=== PATIENT | male | born 1955 | race Caucasian/White ===

== ENCOUNTER 2025-02-12 06:53 | Day surgery (SDC) | payer OTHER, SELFPAY ==
[2025-02-12] VITALS (13 sets, daily range): BP systolic 125–175; BP diastolic 79–115; BMI 30.6
[2025-02-12] MEDS: NSS 282 ML IV (08:09)
[2025-02-12] MEDS: LASIX 20 MG IV (11:53)
[2025-02-12] MEDS: TOPROL XL 25 MG PO (11:54)
--- NOTE | 2025-02-12 12:44 | PTCARENOTE ---
Pt's heart rate dropping to 30's. Pt asymptomatic. BP 130's/80-90's. Nicky Good NP made aware and in to evaluate pt. NSS IV bolus ordered. Will administer and continue to monitor.
[2025-02-12] MEDS: NSS 500 IV (12:51)
--- NOTE | 2025-02-12 17:38 | ITS.CL.CATH ---
[facility] - Catheterization
Cardiac Catheterization
Procedure Report:
LEFT HEART CATHETERIZATION
Date of Procedure: February 12, 2025
Referring: Gregory Figueroa.
PROCEDURES:
1. Left heart catheterization, coronary angiogram.
2. Moderate sedation.
INDICATION: Abnormal coronary CT
ACCESS: Right radial artery, 6Fr. sheath, under US guidance.
HEMODYNAMICS : (mmHg)
AO (s/d) : 143/92
LVEDP : 25
No significant gradient across the aortic valve to suggest aortic stenosis.
CORONARY FINDINGS
Dominance: Right
Left Main Trunk (LMT): Large caliber vessel that gives rise to the LAD and LCx branches and there is mild diffuse atherosclerotic plaque.
Left Anterior Descending Artery (LAD): Large caliber vessel that gives off 2 major diagonal branches as it courses along the anterior inter-ventricular groove before wrapping around the cardiac apex. Mid LAD has a 80% stenosis just distal to D2
takeoff. D1 and D2 are small caliber vessels. D2 has moderate to severe diffuse plaque in the proximal to midportion of the vessel.
Left Circumflex Artery (LCx): Large caliber vessel that gives off 2 major obtuse marginal (OM) branches as it courses along the atrio-ventricular (AV) groove. Proximal to mid left circumflex has 70 to 80% stenosis extending into a medium caliber
OM1 which appears to be a good bypass target.
Right Coronary Artery (RCA): Large caliber dominant vessel that gives rise to the posterior descending artery (RPDA) and postero-lateral ventricular (RPLV) branches distally. There is diffuse mild to moderate plaque in the proximal to mid vessel
with 2 serial 70 to 80% stenosis in the distal RCA. Midportion of the RPDA has 70% stenosis.
SEDATION: 27 minutes of procedural sedation was utilized. IV Midazolam and IV Fentanyl were administered. An independent medical manager was present to assist with and help manage the patient's level of consciousness and physiologic status.
RADIATION SUMMARY: Fluoro Time (min): 2.6, Dose (mGy): 464.57, DAP (Gy.cm2) : 32.4
Closure Device: There were no immediate intra-procedural complications. The sheath was pulled in the recyclable materials collector and a vascular-band applied to the right wrist for radial artery hemostasis using the patent hemostasis technique.
CONCLUSIONS
1. Significant multivessel coronary artery disease.
2. Elevated LVEDP at 25 mmHg.
RECOMMENDATIONS
1. Wean radial band per protocol. Monitor right hand perfusion and for bleeding from the radial site following removal of the vascular-band following trans-radial access.
2. Continue aggressive medical therapy and risk factor modification for secondary CAD prevention.
3. Hydrate with normal saline to mitigate the risk of contrast-induced acute kidney injury.
4. Refer for CT surgery consult for discussion for coronary artery bypass grafting.
5. Follow-up with Dr. Adrien Foley.
Copy to: Gregory Figueroa.
Daya Ray MD, [facility], [facility]
== END 2025-02-12 14:20 | disposition home or self-care (01) ==
LOC: CATH 06:53
PROVIDERS: ATTENDING PHYSICIAN Student in an Organized Health Care Education/Training Program; FAMILY PHYSICIAN Internal Medicine; OTHER PHYSICIAN Internal Medicine Cardiovascular Disease
DX: I25.10 Atherosclerotic heart disease of native coronary artery without angina pectoris (principal); R93.1 Abnormal findings on diagnostic imaging of heart and coronary circulation; E78.5 Hyperlipidemia, unspecified; I71.21 Aneurysm of the ascending aorta, without rupture
CPT/HCPCS: 99152; 99153; 93458; C1894; Q9967

== ENCOUNTER 2025-03-19 04:54 | Inpatient (IN) | payer OTHER, SELFPAY ==
[2025-03-06 12:04] VITALS: BMI 30.4
[2025-03-06 12:55] LABS: Hematocrit 40.9 % (39.0-52.0); Hemoglobin 14.0 g/dL (13.0-18.0); Mean Corp Hgb Conc. 34.2 g/dL (33.0-37.0); Mean Corpuscular Volume 90.1 fL (80.0-94.0); Nucleated Red Blood Cells % 0 % (-); Platelet Count 227 10^3/uL (130-400); Red Cell Dist. Width 12.8 % (11.5-14.5)
[2025-03-06 13:05] LABS: INR 0.94; PT 12.9 Sec (11.4-14.6)
[2025-03-06 13:06] LABS: Urine Character Clear (Clear)
[2025-03-06 13:10] LABS: ALT (SGPT) 48 U/L (0-50); AST (SGOT) 30 U/L (17-59); Albumin 4.5 g/dl (3.5-5.0); Alkaline Phosphatase 50 U/L (38-126); Blood Urea Nitrogen 24 mg/dl (9-20); Calcium 9.4 mg/dl (8.4-10.2); Carbon Dioxide 30 mmol/L (22-30); Chloride 106 mmol/L (98-107); Estimated Creatinine Clearance 102 ml/min; Glucose 90 mg/dl (70-99); Potassium 5.2 mmol/L (3.5-5.1); Sodium 142 mmol/L (135-145); Total Protein 6.8 g/dl (6.3-8.2); eGFR > 60.00
--- NOTE | 2025-03-06 13:28 | CM ---
Met with Mr. Carpenter in [facility]. He states prior to admission he resides alone in a three story home with a full flight of steps from the basement. He states he has a full flight of steps to get to bedroom/full bathroom. He states he has a powder room
on the first floor. He states prior to admission he was independent with ambulation and adls. He states he does not have nay dem in the home. He states he has a prescription plan and uses [facility]. He states he is planning on staying with his
brother in [place], [place] for a while before returning home. The discharge plan is to go to his brothers home in [place], [place]. with a home visit by the Transitional Care Nurse when medically stable.
We reviewed pre-op and post-op routines. We reviewed the shower instructions. He has the soap, written instructions and the Cardiothoracic Thoracic Surgery Educational Booklet. We reviewed restrictions including sternal precautions and driving
restrictions. We discussed a home visit by the Transitional Care Nurse. He is agreeable to the home visit. The plan is for AVR and CABG on March 16, 2025.
[2025-03-06 13:32] LABS: Glycohemoglobin (HgbA1c) 5.5 % (4.0-5.6)
[2025-03-19] VITALS (20 sets, daily range): BP systolic 74–150; BP diastolic 56–104; BMI 29.7
[2025-03-19] MEDS: MAGNESIUM OXIDE 400 MG PO (05:22)
[2025-03-19] MEDS: LOPRESSOR 25 MG PO (05:22)
[2025-03-19] MEDS: PROTONIX 40 MG PO (05:22)
[2025-03-19] MEDS: BACTROBAN 2% OINTMENT 1 APPLIC NASAL ×2 (05:23→20:19)
--- NOTE | 2025-03-19 06:00 | PTCARENOTE ---
admitted pt into 2266. pt confirmed NPO since midnight and 2 CHG showers taken at home. labs obtained. pt clipped and washed w/ CHG wipes. Admission questions and med rec completed. Pre-op medications given. awaiting CVOR
[2025-03-19 07:24] LABS: Urine Character Clear (Clear)
[2025-03-19 07:27] LABS: ACT+ - POC 118 Seconds (82-134)
[2025-03-19 07:53] LABS: Urine White Cell 0-2 /HPF (0-5)
[2025-03-19 07:55] LABS: Urine Red Blood Cell 21-25 /HPF (0-2)
[2025-03-19 07:56] LABS: Urine Urothelial Cell >30 /LPF (FEW)
[2025-03-19 09:31] LABS: ACT+ - POC 666 Seconds (82-134)
[2025-03-19 09:46] LABS: B.E. - POC 0.2 mmol/L; Glucose - POC 88 mg/dl (70-99); HCO3 - POC 26 mmol/L (21-28); Hematocrit - POC 35 % PCV (42-52); Hemodilution- POC No; Hemoglobin Calculated - POC 12.0; Ionized Calcium - POC 1.19 mmol/L (1.15-1.33); Lactate - POC 1.04 mmol/L (0.36-0.75); O2 Saturation %Calculated-POC 99.4 % (94-98); PCO2 - POC 44 mmHg (35-48); PO2 - POC 163 mmHg (83-108); Potassium - POC 3.6 mmol/L (3.5-5.1); Sodium - POC 141 mmol/L (136-145); Specimen Type - POC Arterial; pH - POC 7.38 (7.35-7.45)
[2025-03-19 09:55] LABS: ACT+ - POC 565 Seconds (82-134)
[2025-03-19 10:08] LABS: B.E. - POC 6.4 mmol/L; Glucose - POC 134 mg/dl (70-99); HCO3 - POC 32 mmol/L (21-28); Hematocrit - POC 30 % PCV (42-52); Hemodilution- POC Yes; Hemoglobin Calculated - POC 10.3; Ionized Calcium - POC 1.08 mmol/L (1.15-1.33); Lactate - POC 0.85 mmol/L (0.36-0.75); O2 Saturation %Calculated-POC 100.0 % (94-98); PCO2 - POC 50 mmHg (35-48); PO2 - POC 485 mmHg (83-108); POC Comment CPB; Potassium - POC 4.2 mmol/L (3.5-5.1); Sodium - POC 141 mmol/L (136-145); Specimen Type - POC Arterial; pH - POC 7.42 (7.35-7.45)
[2025-03-19 10:19] LABS: ACT+ - POC 523 Seconds (82-134)
[2025-03-19 10:38] LABS: B.E. - POC 3.8 mmol/L; Glucose - POC 112 mg/dl (70-99); HCO3 - POC 28 mmol/L (21-28); Hematocrit - POC 29 % PCV (42-52); Hemodilution- POC Yes; Hemoglobin Calculated - POC 9.8; Ionized Calcium - POC 1.03 mmol/L (1.15-1.33); Lactate - POC 1.50 mmol/L (0.36-0.75); O2 Saturation %Calculated-POC 99.9 % (94-98); PCO2 - POC 41 mmHg (35-48); PO2 - POC 298 mmHg (83-108); POC Comment CPB; Potassium - POC 5.6 mmol/L (3.5-5.1); Sodium - POC 140 mmol/L (136-145); Specimen Type - POC Arterial; pH - POC 7.45 (7.35-7.45)
[2025-03-19 10:47] LABS: ACT+ - POC 517 Seconds (82-134)
[2025-03-19 11:08] LABS: B.E. - POC 2.9 mmol/L; Glucose - POC 140 mg/dl (70-99); HCO3 - POC 27 mmol/L (21-28); Hematocrit - POC 30 % PCV (42-52); Hemodilution- POC Yes; Hemoglobin Calculated - POC 10.1; Ionized Calcium - POC 1.10 mmol/L (1.15-1.33); Lactate - POC 1.75 mmol/L (0.36-0.75); O2 Saturation %Calculated-POC 100.0 % (94-98); PCO2 - POC 39 mmHg (35-48); PO2 - POC 381 mmHg (83-108); POC Comment CPB; Potassium - POC 5.0 mmol/L (3.5-5.1); Sodium - POC 141 mmol/L (136-145); Specimen Type - POC Arterial; pH - POC 7.45 (7.35-7.45)
[2025-03-19 11:17] LABS: ACT+ - POC 561 Seconds (82-134)
[2025-03-19 11:32] LABS: B.E. - POC 3.4 mmol/L; Glucose - POC 140 mg/dl (70-99); HCO3 - POC 28 mmol/L (21-28); Hematocrit - POC 31 % PCV (42-52); Hemodilution- POC Yes; Hemoglobin Calculated - POC 10.5; Ionized Calcium - POC 1.13 mmol/L (1.15-1.33); Lactate - POC 1.77 mmol/L (0.36-0.75); O2 Saturation %Calculated-POC 99.9 % (94-98); PCO2 - POC 43 mmHg (35-48); PO2 - POC 334 mmHg (83-108); POC Comment CPB; Potassium - POC 4.3 mmol/L (3.5-5.1); Sodium - POC 141 mmol/L (136-145); Specimen Type - POC Arterial; pH - POC 7.43 (7.35-7.45)
--- NOTE | 2025-03-19 11:41 | CM ---
Chart reviewed. Patient is in the OR today. Patient is independent of ADLS, lives alone in a 3 STH, 0 DME. Plan is for the patient to go to his brothers house in [place]. CM to cofirm and get brothers address. Plan is for the patient to go
to his brothers house with CT Transitional RN. CM to follow
[2025-03-19 11:42] LABS: ACT+ - POC 527 Seconds (82-134)
[2025-03-19 12:04] LABS: ACT+ - POC 531 Seconds (82-134)
[2025-03-19 12:08] LABS: B.E. - POC -0.1 mmol/L; Glucose - POC 120 mg/dl (70-99); HCO3 - POC 25 mmol/L (21-28); Hematocrit - POC 31 % PCV (42-52); Hemodilution- POC Yes; Hemoglobin Calculated - POC 10.5; Ionized Calcium - POC 1.09 mmol/L (1.15-1.33); Lactate - POC 2.51 mmol/L (0.36-0.75); O2 Saturation %Calculated-POC 100.0 % (94-98); PCO2 - POC 42 mmHg (35-48); PO2 - POC 384 mmHg (83-108); POC Comment WARM; Potassium - POC 4.7 mmol/L (3.5-5.1); Sodium - POC 142 mmol/L (136-145); Specimen Type - POC Arterial; pH - POC 7.39 (7.35-7.45)
[2025-03-19 12:17] LABS: ACT+ - POC 511 Seconds (82-134)
[2025-03-19 12:31] LABS: B.E. - POC 2.6 mmol/L; Glucose - POC 130 mg/dl (70-99); HCO3 - POC 28 mmol/L (21-28); Hematocrit - POC 31 % PCV (42-52); Hemodilution- POC Yes; Hemoglobin Calculated - POC 10.5; Ionized Calcium - POC 1.12 mmol/L (1.15-1.33); Lactate - POC 2.33 mmol/L (0.36-0.75); O2 Saturation %Calculated-POC 99.9 % (94-98); PCO2 - POC 48 mmHg (35-48); PO2 - POC 342 mmHg (83-108); POC Comment WARM; Potassium - POC 4.5 mmol/L (3.5-5.1); Sodium - POC 144 mmol/L (136-145); Specimen Type - POC Arterial; pH - POC 7.38 (7.35-7.45)
[2025-03-19 13:04] LABS: ACT+ - POC 123 Seconds (82-134)
--- NOTE | 2025-03-19 13:42 | W.CVOR.SURPR ---
CVOR Surgeon Immed Pre Op
-
I have examined this patient prior to performance of the scheduled procedure.
The patient's condition is unchanged from the time of the dictated/written History and
Physical and the patient is able to undergo the scheduled procedure.
--- NOTE | 2025-03-19 13:43 | W.IMMPOSTOP ---
Addendum entered and electronically signed by Robbie Ariza MD 03/19/25 14:19:
[id number]
Original Note:
Surgical Immed Post Op Note
-
CARDIAC SURGERY OPERATIVE NOTE:
Preoperative Dx:
Ascending aortic enlargement (4.6mm max)
MVCAD
Postoperative Dx:
Same
Procedures:
1) Median sternotomy
2) Takedown of TEMO
3) Endoscopic harvest/prep of RLE GSV
4) CABG x 4 (TEMO to LAD, GSV to D1, GSV to OM1, GSV to distal PDA)
5) ELAA (45mm AtriClip)
6) Ascending aortic wrap w/ hemashield graft
Surgeon:
Robbie Ariza M.D.
Assistants:
Laura VeeARamana-CRamana - first dyer throughout; sternal closure
Kaylee Aguilar-CRamana - endoscopic harvest/prep of RLE GSV
Anesthesia:
Terry Obando M.D.
Perfusion:
Loida Mendez, C.C.P.; CPB 160min, XC: 99min
Findings:
TEMO was healthy conduit w/ ELD 3.0mm w/ very brisk blood flow
GSV was healthy conduit w/ slightly small ELD (2.5-3.0mm) w/ normal wall thickness
LAD was visible on the epicardial surface, moderately dense scattered calcifications, thickened abraham at midpoint anastomosis, but good ELD 2.75mm
D1 was visible on the epicardial surface, moderate dense scattered calcifications, normal abraham at distal midpoint anastomosis, ELD 2.5mm
OM1 was initially visible on the epicardial surface, then took a shallow intramyocardial course (~1mm), anastomosis performed at intramyocardial segment, ELD 3.25mm
RPDA was visible on the epicardial surface, midpoint calcification/lesion visible. Relatively normal abraham distal, ELD 2.5mm
Ascending aorta was enlarged at max of 4.7mm on my assessment of his CTA, there was relatively normal architecture, it appeared grossly normal (albeit enlarged) intraoperatively w/ normal wall thickness. I opted to perform an ascending aortic wrap
w/ a hemashield graft. I was very pleased w/ the result.
Post-SHIN: normal biventricular function, MEGAN confirmed excluded
Good flow in all grafts on U/S flow probe assessment
Implants:
45mm AtriClip
Hemashield graft - wrap
CT x 4
Sternal wires/plates
Condition:
Stable/guarded to CVICU
[2025-03-19 14:01] LABS: B.E. - POC -0.8 mmol/L; Glucose - POC 114 mg/dl (70-99); HCO3 - POC 25 mmol/L (21-28); Hematocrit - POC 27 % PCV (42-52); Hemodilution- POC Yes; Hemoglobin Calculated - POC 9.3; Ionized Calcium - POC 1.22 mmol/L (1.15-1.33); Lactate - POC 1.87 mmol/L (0.36-0.75); O2 Saturation %Calculated-POC 99.9 % (94-98); PCO2 - POC 44 mmHg (35-48); PO2 - POC 345 mmHg (83-108); Potassium - POC 3.7 mmol/L (3.5-5.1); Sodium - POC 143 mmol/L (136-145); Specimen Type - POC Arterial; pH - POC 7.36 (7.35-7.45)
[2025-03-19] MEDS: TYLENOL PO (14:07)
[2025-03-19] MEDS: PACERONE PO (14:07)
[2025-03-19] MEDS: NEURONTIN PO ×2 (14:09→14:11)
[2025-03-19] MEDS: NSS 500 IV (14:34)
[2025-03-19 14:44] LABS: Glucose - Point of Care 154 mg/dl (70-99)
--- NOTE | 2025-03-19 14:51 | CON.INTV ---
Consultation
Consultation Request
Date/Time Consultation Requested: 03/19
Date/Time Consultation Performed: 03/19
Reason for Consultation: Critical care
Medical History
-
History of Present Illness:
History obtained from the chart as patient is currently intubated and sedated. 69-year-old male with multivessel coronary disease. Patient with a strong family history of coronary disease, underwent coronary calcium study which was abnormal.
Echocardiogram was obtained followed by cardiac catheterization with multivessel coronary disease. He also had a 5 cm ascending thoracic aortic aneurysm. Patient is now status post bypass x 4, ascending aortic wrap with Hemashield graft. [place]
was obtained from right lower extremity greater saphenous vein. Patient presently on low-dose norepinephrine, insulin drip, Precedex. Has not required any blood products. Has been weaned down to 40% FiO2, adequate oxygenation ventilation. We are
asked to help from critical care standpoint
.
PMH: Hyperlipidemia, GERD, restless leg syndrome, coronary disease. History of hernia surgery
Past Medical History
Past Medical History: None (See above)
Past Surgical History: None (See above)
Social History
Tobacco: Non-smoker
Alcohol: Occasional
Drug: None
Personal: Single
Living: Alone
Employment: Employed ([employer])
Family History
Family History: Other (Father and 2 brothers with coronary disease status post bypass surgery in the fifth decade)
Allergies / Home Medications
Allergies
Allergy/AdvReac Type Severity Reaction Status Date / Time
codeine Allergy Unknown Unknown Verified 03/05/25 15:47
Home Medications
�Medication �Instructions �Recorded �Confirmed �Last Taken �Type
atorvastatin 80 mg tablet (Lipitor) 80 mg PO QPM #90 tabs 02/12/25 03/19/25 03/18/25 20:00 Rx
ezetimibe 10 mg tablet (Zetia) 10 mg PO DAILY 02/12/25 03/19/25 03/18/25 20:00 History
multivitamin with minerals-iron 9 ml PO DAILY 02/12/25 03/19/25 03/09/25 07:00 History
fumarate 9 mg iron/15 mL oral
liquid (Multi Vitamin)
vitamin B complex 1 cap PO DAILY 02/12/25 03/19/25 03/09/25 07:00 History
aspirin 81 mg capsule 81 mg PO DAILY 03/05/25 03/19/25 03/18/25 07:00 History
metoprolol succinate 25 mg 25 mg PO DAILY 03/05/25 03/19/25 03/18/25 20:00 History
tablet,extended release 24 hr
omega 4-lxh-xea-fish oil 1,000 mg 1 cap PO DAILY 03/05/25 03/19/25 03/09/25 07:00 History
(120 mg-180 mg) capsule (Fish Oil)
pramipexole 0.5 mg tablet 0.5 mg PO DAILY 03/05/25 03/19/25 03/18/25 12:00 History
Review of Systems
-
Unable to Obtain full review of systems at this time due to: Patient Intubation
Vitals / Labs / Diagnostic Testing
Vital Signs
Temp Pulse Resp BP Pulse Ox
97.9 F 61 14 92/64 95
03/19/25 14:30 03/19/25 14:46 03/19/25 14:30 03/19/25 14:46 03/19/25 14:46
Diagnostic Testing:
Physical Exam
-
HEENT: Normocephalic, Anicteric and Other (Right IJ, left upper extremity A-line)
Cardiovascular: S1/S2, Regular Rhythm, Murmur (n), Rub (n), Peripheral Edema (n) and Other (Right lower extremity bandage)
Respiratory: Wheeze (n), Rales (n), Rhonchi (n) and Non-Labored Respirations
GI: Soft, Non Distended and Non Tender
Neurology: Other (Sedated)
Skin: Good Color
General: Comfortable
Assessment
-
69-year-old male with family history of coronary disease, multivessel coronary disease per catheterization with normal EF, found to have 5 cm ascending aortic aneurysm, now status post CABG x 4, left atrial clip, ascending aortic wrap with
Hemashield graft 03/19/2025
S/p CABG x 4, LA clip on 03/19/25
Ascending aortic graft with Hemashield graft (5.0cm ascending aortic aneurysm)
Multivessel coronary disease per catheterization
Abnormal coronary CT at [facility]
Strong family history of coronary disease
Father, 2 brothers with coronary disease/bypass surgery in fifth decade
Hyperlipidemia
GERD
Restless leg syndrome
Plan/recommendations
At this time, patient is critically ill but stable
Tolerating volume-cycled ventilation, adequate oxygenation and ventilation
Chest exam is clear, chest tube output minimal
Chest x-ray without acute findings, mild left-sided effusion noted per my review
EKG without any acute findings compared to preoperative EKG
Moving forward
Continue with management per CT surgery
Anticipate extubation later today
Follow oxygenation
Follow hemoglobin
Chest tube output minimal. Chest tube management per surgery
Insulin drip noted
Follow blood sugars
Reviewed report of CT chest from Jimi Morris. No evidence of parenchymal disease or adenopathy
Reviewed with critical care nursing
Will follow
TCCT 32 min
[2025-03-19] MEDS: LR 250 ML IV ×3 (14:55→18:46)
[2025-03-19 14:58] LABS: B.E. -2.4 mmol/L; HCO3 23.2 mmol/L (21-28); Hematocrit 31.7 % (39.0-52.0); Hemoglobin 11.2 g/dL (13.0-18.0); O2 Saturation % 96.8 % (94-98); PCO2 42 mmHg (35-48); PO2 79 mmHg (83-108); Platelet Count 165 10^3/uL (130-400); Potassium 4.6 mMOL/L (3.5-5.1); Sodium 136 mMOL/L (136-145)
[2025-03-19] MEDS: DILAUDID 0.5 MG IV ×2 (14:59→22:01)
[2025-03-19] MEDS: ANCEF 10 IV ×2 (15:00)
[2025-03-19] MEDS: CALCIUM GLUCONATE 100 IV (15:02)
[2025-03-19 15:09] LABS: INR 1.28; PT 16.5 Sec (11.4-14.6)
[2025-03-19 15:10] LABS: APTT 25.9 Sec (23.4-35.0)
[2025-03-19 15:14] LABS: Blood Urea Nitrogen 19 mg/dl (9-20); Estimated Creatinine Clearance 123 ml/min; Glucose 146 mg/dl (70-99); Magnesium 2.5 mg/dl (1.6-2.3)
--- NOTE | 2025-03-19 15:15 | PTCARENOTE ---
Patient received from CVOR at 1430, intubated and sedated. Sinus levi on CM, rates 50's, heart tones audible with a rub, no edema, pulses weakly palpable throughout aside from R pedal, which is present via Doppler. Lungs clear on the ventilator,
see worklist for vent settings, minimal cough/vent intolerance, SpO2 96+%, CT x4 to -20 cm wall suction, no air leak, tidaling, or crepitus noted. Abdomen SNT, round, hypoactive bowel sounds. Jim present draining clear, yellow urine. Surgical sits
stable and intact; MS with Aquacel, RSVG site CDI with Dermabond and an sangita wrap. RIJ cordis with SLIC, L radial art line, RAC 20; all applicable lines leveled and zeroed. See nursing worklist for additional intervention details.
--- NOTE | 2025-03-19 15:29 | W.PN.UPDATE ---
Update Note
Progress Note Update
IV fluids: 1800
U.O.:� 715
Blood:� none
Wires:� none
Drips: Levo @ 6, Precedex, Insulin
�
NEURO: sedated, pupils +2mm B/L
RESP: #8OT @23cm> 500/60%/14/5. Lungs clear B/L. 2 mediastinal (30cc on arrival) and R/L pleural (20cc on arrival) chest tubes to -20cm suction. Sanguineous drainage
CV: RRR +S1, S2, no S3, no�rub, no murmur. Dermabond to median sternotomy. RIJ w/Slik
ABD: round, soft, no BS
EXT: no edema, +2/4 DP pulses B/L, no femoral bruit, RLE JOSELITO wrap intact; left radial A-line intact
: Jim with clear yellow urine
�
A/P: POD #0 s/p CABG x 4 (TEMO to LAD, GSV to D1, GSV to OM1, GSV to distal PDA), ELAA (#45mm AtriClip), Ascending aortic wrap w/ hemashield graft
Post-SHIN: normal biventricular function, MEGAN confirmed excluded
- wean and extubate
# CAD
- will require ASA, Plavix, statin/Zetia, beta-von
- Amio for AF prophylaxis
�
# acute surgical blood loss anemia-expected
- trend CBC
�
# Restless leg syndrome
- resume�Pramipexole 0.5mg daily when tolerating solids
[2025-03-19 16:02] LABS: Glucose - Point of Care 170 mg/dl (70-99)
--- NOTE | 2025-03-19 16:06 | W.PN.CARDCBS ---
Addendum entered and electronically signed by Zuhair Robledo MD 03/19/25 17:24:
I saw and examined the patient.
The Application Support Intern's note was reviewed and I agree with the note.
Comment:
GEN: No distress, intubated, sedated
HEENT: supple, anicteric, mmm, ET tube
LUNGS: CTA, no wheezes/rales
CV: Reg, S1/S2, no gallop/rub
ABD: soft, BS+, NT/ND
EXT: No edema
NEURO: Gross non-focal
SKIN: No rash
Plan:
Overall doing well status post CABG. Wean pressors and wean to extubate.
Remains in sinus rhythm.
Hemoglobin 11.2/Creat 0.6
Original Note:
Today's Communication / Plan
-
in SB
continue post op care
Impression / Plan
-
Primary Mathematical Scientist: Dr. Adrien Foley
Assessment:
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
HLD
Family history of CAD
Transthoracic echo at [facility] 12/05/2024: EF 60 to 65%, grade 1 diastolic dysfunction, no significant valvular disease
Plan:
- s/p CABG x4 TEMO to LAD, GSV to D1, GSV to OM1, GSV to distal PDA, MEGAN clip 03/19/25
- intubated, sedated
- on levo@4, wean as able
- SB on review of tele and EKG, follow.
- hgb 11.2
- continue post op care
- Was on regimen of aspirin, Lipitor 80 mg every afternoon, Zetia 10 mg daily, Toprol 25 mg daily prior to admission
- d/w nursing
Progress Note - Mathematical Scientist
Subjective
Date of Service: March 19, 2025
Intubated, sedated
Objective
Labs:
03/19/25 14:44
Labs
Hgb 11.2 g/dL (13.0-18.0) L 03/19/25 14:44
Hct 31.7 % (39.0-52.0) L 03/19/25 14:44
Plt Count 165 10^3/uL (130-400) 03/19/25 14:44
PT 16.5 Sec (11.4-14.6) H 03/19/25 14:44
INR 1.28 03/19/25 14:44
APTT 25.9 Sec (23.4-35.0) 03/19/25 14:44
Sodium 142 mmol/L (135-145) 03/06/25 12:14
Potassium 5.2 mmol/L (3.5-5.1) H 03/06/25 12:14
BUN 19 mg/dl (9-20) 03/19/25 14:44
Creatinine 0.6 mg/dL (0.7-1.3) L 03/19/25 14:44
Glucose 146 mg/dl (70-99) H 03/19/25 14:44
Vital Signs and I&O:
Vital Signs
Temp Pulse Resp BP Pulse Ox
98 F 56 14 98
03/19/25 16:00 03/19/25 16:00 03/19/25 16:00 03/19/25 16:00 03/19/25 16:00
Vital Signs
Temp Pulse Resp BP Pulse Ox
98 F 56 14 68 98
03/19/25 16:00 03/19/25 16:00 03/19/25 16:00 03/19/25 16:00 03/19/25 16:00
Intake & Output
03/17/25 03/18/25 03/19/25 03/20/25
07:59 07:59 07:59 07:59
Intake Total 227.1 / 227.1
Output Total 335 / 335
Balance -107.9 / -107.9
Physical Exam
Physical Exam
GEN: No distress, intubated, sedated
HEENT: supple, mmm
LUNGS: CTA B/L, no wheezes/rales
CV: Reg and levi, S1/S2, no murmur, + rub
ABD: soft, BS+, NT/ND
EXT: No cyanosis, clubbing, edema
NEURO: sedated
SKIN: Warm, pink, dry. No rash. Sternotomy dressing c/d/i. CTs in place
[2025-03-19] MEDS: LIPITOR PO (16:22)
[2025-03-19 17:04] LABS: Glucose - Point of Care 117 mg/dl (70-99)
--- NOTE | 2025-03-19 18:00 | PTCARENOTE ---
Patient CPAP trial at 1800 - following commands and answering yes/no questions appropriately. Labs drawn and sent.
[2025-03-19 18:03] LABS: Glucose - Point of Care 115 mg/dl (70-99)
[2025-03-19 18:28] LABS: Hematocrit 31.4 % (39.0-52.0); Hemoglobin 11.0 g/dL (13.0-18.0); Platelet Count 183 10^3/uL (130-400)
[2025-03-19 18:37] LABS: B.E. - POC -1.0 mmol/L; Blood Urea Nitrogen - POC 18 mg/dl (3-120); Chloride - POC 109 mmol/L (96-111); Creatinine - POC 0.77 mg/dl (0.3-1.0); Glucose - POC 115 mg/dl (70-99); HCO3 - POC 25 mmol/L (21-28); Hematocrit - POC 30 % PCV (42-52); Hemodilution- POC No; Hemoglobin Calculated - POC 10.2; Ionized Calcium - POC 1.24 mmol/L (1.15-1.33); Lactate - POC 1.73 mmol/L (0.36-0.75); O2 Saturation %Calculated-POC 96.5 % (94-98); PCO2 - POC 44 mmHg (35-48); PO2 - POC 90 mmHg (83-108); Potassium - POC 4.3 mmol/L (3.5-5.1); Sodium - POC 144 mmol/L (136-145); Specimen Type - POC Arterial; pH - POC 7.36 (7.35-7.45)
--- NOTE | 2025-03-19 18:45 | PTCARENOTE ---
Patient extubated to 6LNC without incident at 1845
[2025-03-19] MEDS: TORADOL 15 MG IV (19:00)
--- NOTE | 2025-03-19 19:00 | PTCARENOTE ---
report received from previous RN, walking rounds done. pt in bed, drowsy, oriented x4. SB on monitor, HR 50's. heart tones audible with a rub. +peripheral pulses, no edema. b/l breath sounds present. Levo gtt infusing @ 9mcg. 250cc LR bolus
infusing. POX 99% on 6LNC. CT x4 intact to -20 cm wall suction, no air leak, tidaling, or crepitus noted. +BS. abdomen soft, nontender. Insulin gtt infusing per glycemic protocol. lai catheter in place, draining CYU. all surgical sites stable. RIJ
cordis intact w KVO infusing. see worklist for full assessment, VS, and interventions.
[2025-03-19 19:02] LABS: Glucose - Point of Care 98 mg/dl (70-99)
[2025-03-19] MEDS: SENOKOT-S PO (20:19)
[2025-03-19] MEDS: LOW STRENGTH ASPIRIN 81 MG PO (20:24)
[2025-03-19] MEDS: ANCEF 5 IV (20:24)
[2025-03-19 20:34] LABS: B.E. -2.0 mmol/L; HCO3 23.1 mmol/L (21-28); O2 Saturation % 99.2 % (94-98); PCO2 40 mmHg (35-48); PO2 123 mmHg (83-108); Potassium 4.7 mMOL/L (3.5-5.1)
[2025-03-19] MEDS: LEVOPHED 250 IV (21:18)
[2025-03-19 21:28] LABS: Glucose - Point of Care 135 mg/dl (70-99)
[2025-03-19] MEDS: ALBUMIN 5% 250 IV (21:30)
[2025-03-19] MEDS: TYLENOL 1000 MG PO (21:33)
[2025-03-19] MEDS: NEURONTIN 100 MG PO (21:33)
[2025-03-19] MEDS: ZOFRAN 4 MG IV (22:01)
--- NOTE | 2025-03-19 23:00 | PTCARENOTE ---
no acute changes. SR/SB 50s-60s. Levo gtt infusing @ 10mcg. 250cc LR bolus currently infusing. POX 95% on 2LNC. CT output and UO WNL. Insulin gtt maintained. all surgical sites stable. pt sleeping between care.
[2025-03-20] VITALS (30 sets, daily range): BP systolic 77–141; BP diastolic 54–75; PULSE 70; O2SAT 92; BMI 30.5
[2025-03-20] LABS: Glucose - Point of Care 114 mg/dl (70-99)
[2025-03-20] MEDS: DILAUDID 0.5 MG IV ×3 (00:33→22:45)
[2025-03-20 02:32] LABS: Glucose - Point of Care 109 mg/dl (70-99)
--- NOTE | 2025-03-20 03:00 | PTCARENOTE ---
no acute changes. SR/SB 50s-60s. Levo gtt infusing @ 8mcg. POX 95% on 4LNC. CT output and UO WNL. Insulin gtt maintained. all surgical sites stable. pt sleeping between care.
[2025-03-20 04:18] LABS: Glucose - Point of Care 110 mg/dl (70-99)
[2025-03-20] MEDS: ANCEF 5 IV ×2 (04:20→13:38)
[2025-03-20 04:30] LABS: Hematocrit 28.4 % (39.0-52.0); Hemoglobin 10.2 g/dL (13.0-18.0); Mean Corp Hgb Conc. 35.9 g/dL (33.0-37.0); Mean Corpuscular Volume 87.9 fL (80.0-94.0); Platelet Count 170 10^3/uL (130-400); Red Cell Dist. Width 13.1 % (11.5-14.5)
[2025-03-20 05:02] LABS: Blood Urea Nitrogen 25 mg/dl (9-20); Calcium 8.7 mg/dl (8.4-10.2); Carbon Dioxide 25 mmol/L (22-30); Chloride 108 mmol/L (98-107); Estimated Creatinine Clearance 106 ml/min; Glucose 107 mg/dl (70-99); Magnesium 2.1 mg/dl (1.6-2.3); Potassium 4.6 mmol/L (3.5-5.1); Sodium 137 mmol/L (135-145); eGFR > 60.00
[2025-03-20] MEDS: TYLENOL 1000 MG PO ×3 (05:55→22:45)
[2025-03-20] MEDS: LEVOPHED 250 IV (05:55)
--- NOTE | 2025-03-20 06:08 | W.PN.CT ---
Today's Communication / Plan
-
-pod #1
-no issues overnight
-mVO2 63.4. Drips: Levo 6, Insulin
-CT outputs: 2 meds 125/270, 2 pleur 151/261 in 12/24 hrs
-products: 1250 LR, 250 Albumin
-wean off Levo as tolerated, then deline. May need Midodrine
-suspect pericarditis, + rub- consider Colchicine
-levi 50s postop- improved to low 60s overnight - will hold BB. Resumed po Amio
-current meds (ASA, Plavix, Lipitor, Amio, Zetia, Feosol, vit C, Mg, Protonix)
-encourage IS, OOB
Assessment / Plan
-
- Ascending aortic enlargement (4.6mm max), mv-CAD - s/p Ascending aortic wrap w/ hemashield graft, CABG x 4 (TEMO to LAD, GSV to D1, GSV to OM1, GSV to distal PDA), ELAA (45mm AtriClip) by Dr. Ariza on 03/19/25, pod #1
- Post-SHIN: normal biventricular function, MEGAN confirmed excluded
- HTN/HLD
- Strong family hx of CAD (all brothers with CAD)
- GERD
- RLS
- Hx hernia
- Acute postop blood loss anemia
- Acute postop pulmonary insufficiency/atelectasis
- Acute postop hypovolemia with subsequent hypervolemia
- Suspected acute postop pericarditis/+ rub
Discussed patient care with: Nursing and Care Team
Subjective
-
Date of Service: March 20, 2025
Objective Data
-
PT 16.5 Sec (11.4-14.6) H 03/19/25 14:44
INR 1.28 03/19/25 14:44
APTT 25.9 Sec (23.4-35.0) 03/19/25 14:44
Vital Signs
Vital Signs
Temp Pulse Resp BP Pulse Ox
99.2 F 60 9 92/71 96
03/20/25 02:00 03/20/25 02:15 03/20/25 02:15 03/20/25 02:00 03/20/25 02:15
CT Intake/Output/Weight
03/19/25 03/19/25 03/20/25
06:59 18:59 06:59
Intake Total 825.0 / 2009.5 1185.5 / 2010.5
Output Total 545 / 1021 476 / 1021
Balance 280.0 / 989.5 709.5 / 989.5
SaO2: 96
Physical Exam
-
General: Awake and AOx3
Cardiovascular: Regular rate & rhythm, No Murmurs and Rub
Respiratory: Decreased Breath Sounds
Sternum: Stable
Incision: Dry and Intact
Extremities: Other (trace edema b/l, 1+ PTs b/l)
Abdomen: soft, nontender, + decreased bowel sounds
Data Reviewed
-
Lab Results: Results Reviewed
Medications: Active Meds Reviewed
Chest X-Ray: Report Reviewed and Image Reviewed
ECG: Report Reviewed and Image Reviewed
[2025-03-20 06:09] LABS: Glucose - Point of Care 105 mg/dl (70-99)
--- NOTE | 2025-03-20 07:16 | W.PN.INTV ---
Today's Communication / Plan
Recommendations
Pain control, out of bed to chair
Remains on norepinephrine drip, being weaned
Possible treatment for pericarditis
Follow hemoglobin
Assessment
-
69-year-old male with family history of coronary disease, multivessel coronary disease per catheterization with normal EF, found to have 5 cm ascending aortic aneurysm, now status post CABG x 4, left atrial clip, ascending aortic wrap with
Hemashield graft 03/19/2025
S/p CABG x 4, LA clip on 03/19/25
Ascending aortic graft with Hemashield graft (5.0cm ascending aortic aneurysm)
Multivessel coronary disease per catheterization
Abnormal coronary CT at [facility]
Strong family history of coronary disease
Father, 2 brothers with coronary disease/bypass surgery in fifth decade
Hyperlipidemia
GERD
Restless leg syndrome
Plan/recommendations
At this time, patient extubated without difficulty, remains stable
Remains on norepinephrine drip, insulin drip
Splinting on exam noted
Chest x-ray without acute findings, left basilar atelectasis
EKG with diffuse ST elevation. Rub on exam noted
Moving forward
Continue with management per CT surgery
Mild rub on exam noted
EKG noted, likely pericarditis
Follow hemoglobin
Chest tube output minimal. Chest tube management per surgery
Insulin drip noted, wean
Follow blood sugars
Reviewed report of CT chest from Jimi Morris. No evidence of parenchymal disease or adenopathy
Reviewed with critical care nursing
Subjective Dataa
Subjective Data
Date of Service:
Date of Service: March 20, 2025
Subjective:
Patient appears to be comfortable. Complaining of some mild intermittent chest discomfort, presently without any pain. Family at bedside. Denies nausea, abdominal pain
Objective Data
Data Reviewed
Vital Signs / I&O / Oxygen:
Vital Signs
Temp Pulse Resp BP Pulse Ox
98.8 F 62 19 96/65 94
03/20/25 06:00 03/20/25 07:00 03/20/25 07:00 03/20/25 07:00 03/20/25 07:00
Intake and Output
03/19/25 03/20/25 03/21/25
06:59 06:59 06:59
Intake Total 2204.1 / 2204.1
Output Total 1196 / 1196
Balance 1008.1 / 1008.1
SaO2 [CPAP/PSV] 98
SaO2 [SIMV] 98
SaO2 94
Nasal Cannula flow liters per 4
minute
Physical Exam
General: Comfortable and Other (IJ, A-line, chest tube)
HEENT: Normocephalic and Anicteric
Cardiovascular: S1-S2, Regular Rhythm, Murmur (n), Rub (Mild) and Peripheral Edema (n)
Respiratory: Wheeze (n), Crackles (n), Rhonchi (n), Stridor (n) and Other (Splinting on exam)
GI: Soft, Non Distended and Non Tender
Neurology: Awake, Alert and No Motor Deficits
Skin: Jaundice (n) and Rash (n)
Labs/Micro/Reports
Lab Data
03/20/25 04:14
03/20/25 04:14
Laboratory Results
03/19/25 03/19/25
14:44 20:16
PT 16.5 H
INR 1.28
APTT 25.9
pH 7.35 7.37
pCO2 42 40
pO2 79 L 123 H
HCO3 23.2 23.1
O2 Delivery Level
[2025-03-20] MEDS: PROTONIX 40 MG PO ×2 (08:19→08:20)
[2025-03-20] MEDS: VITAMIN C 500 MG PO ×2 (08:19→08:20)
[2025-03-20] MEDS: ZETIA 10 MG PO ×2 (08:19→08:20)
[2025-03-20] MEDS: NEURONTIN 100 MG PO ×3 (08:20→22:44)
[2025-03-20] MEDS: PACERONE 200 MG PO ×3 (08:20→22:44)
[2025-03-20] MEDS: COLCHICINE 0.3 MG PO (08:20)
[2025-03-20] MEDS: FEOSOL 325 MG PO (08:21)
[2025-03-20] MEDS: BACTROBAN 2% OINTMENT 1 APPLIC NASAL ×2 (08:21→20:34)
[2025-03-20] MEDS: MAGNESIUM OXIDE 400 MG PO ×2 (08:21→20:34)
[2025-03-20] MEDS: SENOKOT-S 1 TABLET PO ×2 (08:22→20:35)
[2025-03-20] MEDS: TORADOL 15 MG IV ×2 (08:22→18:27)
[2025-03-20] MEDS: PLAVIX 75 MG PO (08:22)
[2025-03-20] MEDS: LOW STRENGTH ASPIRIN 81 MG PO (08:23)
[2025-03-20] MEDS: LIDOCAINE 4% PATCH 1 PATCH TOPICAL (08:24)
--- NOTE | 2025-03-20 08:30 | PTCARENOTE ---
received PT AAOx4 w/ complaints of pain from CT sights; SR on monitor vss; 4L decreased to 2l nc; GI and wnl; all surgical sights CDI; RIJC Serenity & PIV wnl; CTx4 wnl; see wortklist for detailed assessment
[2025-03-20] MEDS: ROXICODONE 5 MG PO ×3 (09:21→20:35)
[2025-03-20 09:58] LABS: Glucose - Point of Care 83 mg/dl (70-99)
[2025-03-20 09:58] LABS: Glucose - Point of Care 105 mg/dl (70-99)
--- NOTE | 2025-03-20 11:09 | W.PN.CARDCBS ---
Today's Communication / Plan
-
Doing well status post CABG/root repair
Continue metoprolol and amiodarone. Remains in sinus.
Continue colchicine for likely pericarditis.
Impression / Plan
-
Primary Director Of Donor Relations: Dr. Adrien Foley
Assessment:
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
HLD
Family history of CAD
Transthoracic echo at [facility] 12/05/2024: EF 60 to 65%, grade 1 diastolic dysfunction, no significant valvular disease
Plan:
- s/p CABG x4 TEMO to LAD, GSV to D1, GSV to OM1, GSV to distal PDA, MEGAN clip 03/19/25
-Has a mild rub on exam with some diffuse ST elevation. Consider pericarditis. Agree with colchicine.
-Continue aspirin, Plavix, metoprolol, and amiodarone.
Hg 10.2
Continue Lipitor and Zetia.
Progress Note - Director Of Donor Relations
Subjective
Date of Service: March 20, 2025
Feels well and continues to recover. Sternal pains are improving
Objective
Labs:
03/20/25 04:14
03/20/25 04:14
Labs
Hgb 10.2 g/dL (13.0-18.0) L 03/20/25 04:14
Hct 28.4 % (39.0-52.0) L 03/20/25 04:14
Plt Count 170 10^3/uL (130-400) 03/20/25 04:14
PT 16.5 Sec (11.4-14.6) H 03/19/25 14:44
INR 1.28 03/19/25 14:44
APTT 25.9 Sec (23.4-35.0) 03/19/25 14:44
Sodium 137 mmol/L (135-145) 03/20/25 04:14
Potassium 4.6 mmol/L (3.5-5.1) 03/20/25 04:14
BUN 25 mg/dl (9-20) H 03/20/25 04:14
Creatinine 0.7 mg/dL (0.7-1.3) 03/20/25 04:14
Glucose 107 mg/dl (70-99) H 03/20/25 04:14
Vital Signs and I&O:
Vital Signs
Temp Pulse Resp BP Pulse Ox
98.4 F 69 17 89/67 93
03/20/25 09:00 03/20/25 09:45 03/20/25 09:45 03/20/25 09:00 03/20/25 09:45
Vital Signs
Temp Pulse Resp BP Pulse Ox
98.4 F 69 17 93
03/20/25 09:00 03/20/25 09:45 03/20/25 09:45 03/20/25 09:00 03/20/25 09:45
Intake & Output
03/18/25 03/19/25 03/20/25 03/21/25
06:59 06:59 06:59 06:59
Intake Total 2204.1 / 2204.1 53.5 / 53.5
Output Total 1196 / 1196 160 / 160
Balance 1008.1 / 1008.1 -106.5 / -106.5
Physical Exam
Physical Exam
GEN: No distress, awake, Ox3
HEENT: supple, anicteric, mmm
LUNGS: rhonchi
CV: Reg, S1/S2, 1/6 syst LSB, + rub
ABD: soft, BS+, NT/ND
EXT: No edema
NEURO: Gross non-focal
SKIN: sternotomy
--- NOTE | 2025-03-20 11:18 | W.PN.ANS.POP ---
Anesthesia Post Operative
- Anesthesia Post Op Note
Vital Signs Stable-See Nursing Note: Yes
Airway Patent: Yes
Adequate Pain Control: Yes
Change in Mental Status: No
Current Postoperative Nausea & Vomiting: No
Anesthesia Complications: No
General Anesthetic Recall: No
Unplanned Admission: No
Post Op Hydration Adequate: Yes
- -
Pt awake and alert, VSS. Visiting with family at time of post op visit.
--- NOTE | 2025-03-20 11:21 | CM ---
Chart reviewed. Patient lying in bed, brother at beside. Patient is independent of ADLS, lives alone in a 3 STH, 0 DME. Patient will be going to his brothers house when medically stable for discharge. Patient's brother also lives in a 3 STH,
with bedroom on 2nd floor. Patient's brother Alan's address is [address] [place] [id number] . Plan is for the patient to go to his brothers house with CT Transitional RN. CM to follow
--- NOTE | 2025-03-20 11:30 | PTCARENOTE ---
Resumed care of the patient. AOx3, pleasant, c/o 3/10 pain in his sternum. Sinus levi to SR on CM, heart tones audible with a rub, +1 edema on LEs, DP pulses weakly palpable, radial pulses normal. Lungs dim at the bases, shallow breathing, IS
encouraged, 500 achieved, CT x4 to -20 cm wall suction, no air leak, tidaling, or crepitus noted. Abdomen round, normoactive bowel sounds. Jim present draining clear, yellow urine. All surgical sites stable and intact; MS with Aquacel, RSVG site
CDI with Dermabond and an sangita wrap. RIJ cordis with SLIC, L radial art line, RAC 20. See nursing worklist for additional intervention details.
[2025-03-20 12:08] LABS: Glucose - Point of Care 140 mg/dl (70-99)
[2025-03-20] MEDS: NSS IV (13:39)
--- NOTE | 2025-03-20 13:52 | PTCARENOTE ---
Patient delined and OOB to chair. Insulin gtt off. Reports moderate pain but no dizziness, lightheadedness, or balance issues; BP stable on position change, able to stand from sit on EOB with min touch assistance. Jose wrap removed, all surgical
sites stable.
[2025-03-20] MEDS: FERRLECIT 110 MG IV (14:45)
[2025-03-20] MEDS: MIRAPEX, GENERIC 0.5 MG PO (14:45)
[2025-03-20] MEDS: LIPITOR 80 MG PO (18:01)
[2025-03-20] MEDS: REMOVE LIDOCAINE PATCH 1 PATCH REMOVE (20:34)
--- NOTE | 2025-03-20 21:00 | PTCARENOTE ---
Patient OOB in chair. Patient A+A+Ox3. No neurological deficits noted. No c/o headache, dizziness or lightheadedness. Roxicodone 5 mg PO for pain management. No urge to void at this time. O2 at 2L via NC. SpO2 97%. Lungs diminished
throughout lung brenner. I.S. 500-750ml. Four chest tubes - Mediastinal x2 and Right and Left Pleural - Intact and patent - 20 ml red drainage - No air leak - Dressing intact. Sinus Rhythm. Heart rate 70-80's. Blood pressure 99/65 (75). Patient
with no c/o chest pain, pressure or discomfort. Abdomen soft, nontender. Normoactive bowel sounds. No BM. No c/o nausea. No vomiting. Positive, palpable pulses. Edema. Sternal dressing intact. Right groin puncture site intact - Ecchymosis.
Right lower extremity incision intact - Surgical adhesive - Open to air. Right I.J. Cordis. Assessment as documented.
[2025-03-20] MEDS: FLEXBUMIN 50 IV (23:28)
[2025-03-21] VITALS (18 sets, daily range): BP systolic 98–125; BP diastolic 61–77; PULSE 80; O2SAT 92–96; BMI 30.9
--- NOTE | 2025-03-21 | PTCARENOTE ---
Patient assisted to standing position from chair. Patient attempted to void - Unable. Patient assisted to bed with assist x2. No c/o headache, dizziness or lightheadedness. Blood pressure 112/71 (82). Bladder scanned for 95ml. IV Dilaudid 0.5
mg for pain management. 25% Flexbumin 12.5 grams/50ml ordered by PA - Infusing without difficulty. Patient sleeping. Assessment/Interventions as documented.
[2025-03-21] MEDS: DILAUDID 0.25 MG IV (03:57)
[2025-03-21] MEDS: NSS 500 IV (04:00)
[2025-03-21 04:32] LABS: Hematocrit 25.6 % (39.0-52.0); Hemoglobin 8.6 g/dL (13.0-18.0); Mean Corp Hgb Conc. 33.6 g/dL (33.0-37.0); Mean Corpuscular Volume 91.8 fL (80.0-94.0); Platelet Count 136 10^3/uL (130-400); Red Cell Dist. Width 13.5 % (11.5-14.5)
[2025-03-21 04:46] LABS: Blood Urea Nitrogen 40 mg/dl (9-20); Calcium 8.5 mg/dl (8.4-10.2); Carbon Dioxide 28 mmol/L (22-30); Chloride 105 mmol/L (98-107); Estimated Creatinine Clearance 70 ml/min; Glucose 125 mg/dl (70-99); Magnesium 2.4 mg/dl (1.6-2.3); Potassium 4.7 mmol/L (3.5-5.1); Sodium 136 mmol/L (135-145); eGFR > 60.00
--- NOTE | 2025-03-21 05:00 | PTCARENOTE ---
Patient A+A+Ox3. No neurological deficits noted. No c/o headache, dizziness or lightheadedness. IV Dilaudid 0.25 mg for pain management. AM lab work collected and sent. [facility] bath and linens changed. Chest tube dressing changed. Unable to void.
Bladder scanned for 216 ml. Assessment/Interventions as documented.
[2025-03-21] MEDS: TYLENOL 1000 MG PO ×3 (06:31→22:51)
[2025-03-21] MEDS: ROXICODONE 5 MG PO ×3 (06:33→21:06)
[2025-03-21] MEDS: FLEXBUMIN 50 IV ×2 (06:40→15:32)
--- NOTE | 2025-03-21 07:02 | W.PN.CT ---
Today's Communication / Plan
-
-pod #2
-urinary retention, waiting to void. Bladder scan with 216 cc at 4:30 am
-Cr trended up from 0.7 to 1.2 today
-CT outputs: 2 meds 70/275, 2 pleur 55/105 in 12/24 hrs
-got total 1.5 L ivf postop. Started 25% albumin x 3
-on Midodrine 5 tid for hypotension.
-started on Colchicine for pericarditis
-urinary retention- consider Flomax if BP improves
-current meds (ASA, Plavix, Midodrine, Lipitor, Amio, Zetia, Colchicine, Feosol, vit C, Mg, Protonix). Holding BB for hypotension
-encourage IS, OOB
Assessment / Plan
-
- Ascending aortic enlargement (4.6mm max), mv-CAD - s/p Ascending aortic wrap w/ hemashield graft, CABG x 4 (TEMO to LAD, GSV to D1, GSV to OM1, GSV to distal PDA), ELAA (45mm AtriClip) by Dr. Ariza on 03/19/25, pod #2
- Post-SHIN: normal biventricular function, MEGAN confirmed excluded
- HTN/HLD
- Strong family hx of CAD (all brothers with CAD)
- GERD
- RLS
- Hx hernia
- Acute postop blood loss anemia
- Acute postop pulmonary insufficiency/atelectasis
- Acute postop hypovolemia with subsequent hypervolemia
- Suspected acute postop pericarditis/+ rub
- Acute postop urinary retention
- EDUARD
Discussed patient care with: Nursing and Care Team
Subjective
-
Date of Service: March 21, 2025
Objective Data
-
PT 16.5 Sec (11.4-14.6) H 03/19/25 14:44
INR 1.28 03/19/25 14:44
APTT 25.9 Sec (23.4-35.0) 03/19/25 14:44
Vital Signs
Vital Signs
Temp Pulse Resp BP Pulse Ox
98.4 F 71 16 98/68 91
03/20/25 22:25 03/21/25 01:15 03/20/25 22:25 03/21/25 00:00 03/21/25 01:15
CT Intake/Output/Weight
03/20/25 03/20/25 03/21/25
06:59 18:59 06:59
Intake Total 1379.1 / 2204.1 1215.5 / 1575.5 360 / 1575.5
Output Total 651 / 1196 540 / 630 90 / 630
Balance 728.1 / 1008.1 675.5 / 945.5 270 / 945.5
SaO2: 91
Physical Exam
-
General: Awake and AOx3
Cardiovascular: Regular rate & rhythm, No Murmurs and Rub
Respiratory: Decreased Breath Sounds
Sternum: Stable
Incision: Clean and Dry
Extremities: Edema +1 (hands and feet b/l)
Abdomen: soft, nontender, nondistended, + decreased bowel sounds
Data Reviewed
-
Lab Results: Results Reviewed
Medications: Active Meds Reviewed
Chest X-Ray: Report Reviewed and Image Reviewed
ECG: Report Reviewed and Image Reviewed
--- NOTE | 2025-03-21 07:16 | W.PN.INTV ---
Today's Communication / Plan
Recommendations
Incentive spirometry, ambulate
Diuresis per CT surgery
Follow creatinine
Per nursing, patient transferred to telemetry. We will sign off. Please call with questions
Assessment
-
69-year-old male with family history of coronary disease, multivessel coronary disease per catheterization with normal EF, found to have 5 cm ascending aortic aneurysm, now status post CABG x 4, left atrial clip, ascending aortic wrap with
Hemashield graft 03/19/2025
S/p CABG x 4, LA clip on 03/19/25
Ascending aortic graft with Hemashield graft (5.0cm ascending aortic aneurysm)
Multivessel coronary disease per catheterization
Abnormal coronary CT at [facility]
Strong family history of coronary disease
Father, 2 brothers with coronary disease/bypass surgery in fifth decade
Hyperlipidemia
GERD
Restless leg syndrome
Plan/recommendations
At this time, patient objectively and subjectively improved
Off norepinephrine drip, off insulin drip
Splinting improved on exam
Chest x-ray without acute findings, left basilar atelectasis
Creatinine noted, 1.2
Moving forward
Continue with management per CT surgery
Plan for diuresis noted
Chest tube drainage being followed, management per CT surgery
Off insulin drip
Follow blood sugars
Reviewed report of CT chest from Jimi Morris. No evidence of parenchymal disease or adenopathy
Reviewed with critical care nursing
Patient transferred to telemetry. We will sign off. Please call with questions
Subjective Dataa
Subjective Data
Date of Service:
Date of Service: March 21, 2025
Subjective:
Patient feels much improved compared to yesterday. Minimal incisional discomfort. Denies nausea, significant short of breath. Sitting in chair comfortable
Objective Data
Data Reviewed
Vital Signs / I&O / Oxygen:
Vital Signs
Temp Pulse Resp BP Pulse Ox
98.4 F 72 16 115/67 94
03/21/25 04:00 03/21/25 05:00 03/21/25 04:00 03/21/25 04:00 03/21/25 04:00
Intake and Output
03/20/25 03/21/25 03/22/25
06:59 06:59 06:59
Intake Total 2204.1 / 2204.1 1605.5 / 1605.5
Output Total 1196 / 1196 665 / 665
Balance 1008.1 / 1008.1 940.5 / 940.5
SaO2 [CPAP/PSV] 98
SaO2 [SIMV] 98
SaO2 94
Nasal Cannula flow liters per 2
minute
Physical Exam
General: Comfortable
HEENT: Normocephalic and Anicteric
Cardiovascular: S1-S2, Regular Rhythm, Murmur (n), Rub (Mild) and Peripheral Edema (n)
Respiratory: Wheeze (n), Crackles (n) and Rhonchi (n)
GI: Soft, Non Distended and Non Tender
Neurology: Awake, Alert and No Motor Deficits
Skin: Jaundice (n) and Rash (n)
Labs/Micro/Reports
Lab Data
03/21/25 03:48
03/21/25 03:48
--- NOTE | 2025-03-21 08:13 | PTCARENOTE ---
[facility]; pt AAOx3 and resting comfortably in chair; NSR on monitor and VSS; RIJ Cordis and PIV x1 patent; Lungs diminished; IS to 750; CT x4 to -20 wall suction no air leak and no crepitus noted; hypoactive bowel sounds; pt
DTV, Lasix x1 given per CTPA; +1 generalized edema noted; palpable pulses throughout; all surgical sites C/D/I; see nursing documentation for further details.
--- NOTE | 2025-03-21 08:33 | W.PN.CARDCBS ---
Today's Communication / Plan
-
Still having chest pains. Continue colchicine.
Remains in sinus rhythm. Continue amiodarone and metoprolol.
Hemoglobin down to 8.6. Continue to follow.
Creatinine at 1.2. Repeat creatinine and consider Lasix later today.
Impression / Plan
-
Primary Paleologist: Dr. Adrien Foley
Assessment:
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
HLD
Family history of CAD
Transthoracic echo at [facility] 12/05/2024: EF 60 to 65%, grade 1 diastolic dysfunction, no significant valvular disease
Plan:
- s/p CABG x4 TEMO to LAD, GSV to D1, GSV to OM1, GSV to distal PDA, MEGAN clip 03/19/25
-Has a mild rub on exam with some diffuse ST elevation. Continue colchicine. Continue pain control
-Continue aspirin, Plavix, metoprolol, and amiodarone.
-Creatinine 1.2. Agree with repeat creatinine. May need diuresis later today.
Hg 8.6
Continue Lipitor and Zetia.
Progress Note - Paleologist
Subjective
Date of Service: March 21, 2025
Had chest pains overnight. Now improved. Also had some urinary retention.
Objective
Labs:
03/21/25 03:48
Labs
Hgb 8.6 g/dL (13.0-18.0) L 03/21/25 03:48
Hct 25.6 % (39.0-52.0) L 03/21/25 03:48
Plt Count 136 10^3/uL (130-400) 03/21/25 03:48
PT 16.5 Sec (11.4-14.6) H 03/19/25 14:44
INR 1.28 03/19/25 14:44
APTT 25.9 Sec (23.4-35.0) 03/19/25 14:44
Sodium 136 mmol/L (135-145) 03/21/25 03:48
Potassium 4.7 mmol/L (3.5-5.1) 03/21/25 03:48
BUN 40 mg/dl (9-20) H 03/21/25 03:48
Creatinine 1.2 mg/dL (0.7-1.3) 03/21/25 03:48
Glucose 125 mg/dl (70-99) H 03/21/25 03:48
Vital Signs and I&O:
Vital Signs
Temp Pulse Resp BP Pulse Ox
98.4 F 73 20 102/66 94
03/21/25 08:00 03/21/25 08:16 03/21/25 08:00 03/21/25 08:16 03/21/25 08:00
Vital Signs
Temp Pulse Resp BP Pulse Ox
98.4 F 73 20 102/66 94
03/21/25 08:00 03/21/25 08:16 03/21/25 08:00 03/21/25 08:16 03/21/25 08:00
Intake & Output
03/19/25 03/20/25 03/21/25 03/22/25
06:59 06:59 06:59 06:59
Intake Total 2204.1 / 2204.1 1605.5 / 1605.5
Output Total 1196 / 1196 665 / 665
Balance 1008.1 / 1008.1 940.5 / 940.5
Physical Exam
Physical Exam
GEN: No distress, awake, Ox3
HEENT: supple, anicteric, mmm
LUNGS: CTA, no wheezes/rales
CV: Reg, S1/S2, + rub
ABD: soft, BS+, NT/ND
EXT: No edema
NEURO: Gross non-focal
SKIN: sternotomy
[2025-03-21] MEDS: BACTROBAN 2% OINTMENT 1 APPLIC NASAL ×2 (08:34→20:41)
[2025-03-21] MEDS: LASIX 40 MG IV (08:34)
[2025-03-21] MEDS: KLOR-CON 20 MEQ PO (08:34)
[2025-03-21] MEDS: COLCHICINE 0.3 MG PO (08:36)
[2025-03-21] MEDS: PROTONIX 40 MG PO (08:36)
[2025-03-21] MEDS: SENOKOT-S 1 TABLET PO ×2 (08:36→20:41)
[2025-03-21] MEDS: MAGNESIUM OXIDE 400 MG PO (08:37)
[2025-03-21] MEDS: PACERONE 200 MG PO ×3 (08:37→22:51)
[2025-03-21] MEDS: VITAMIN C 500 MG PO (08:37)
[2025-03-21] MEDS: PLAVIX 75 MG PO (08:37)
[2025-03-21] MEDS: FEOSOL 325 MG PO (08:37)
[2025-03-21] MEDS: LOW STRENGTH ASPIRIN 81 MG PO (08:37)
[2025-03-21] MEDS: LIDOCAINE 4% PATCH 1 PATCH TOPICAL (08:38)
[2025-03-21] MEDS: NEURONTIN 100 MG PO ×3 (08:38→22:51)
[2025-03-21] MEDS: ZETIA 10 MG PO (08:38)
--- NOTE | 2025-03-21 10:14 | PTCARENOTE ---
CT x4 removed per CTPA order.
--- NOTE | 2025-03-21 11:38 | PTCARENOTE ---
Assessment unchanged; NSR on monitor and VSS; pt resting comfortably in chair with family at bedside.
[2025-03-21] MEDS: MIRAPEX, GENERIC 0.5 MG PO (14:03)
[2025-03-21] MEDS: TOPROL XL 12.5 MG PO (14:03)
[2025-03-21] MEDS: FLEXERIL 5 MG PO (14:03)
[2025-03-21] MEDS: FERRLECIT 110 MG IV (14:03)
[2025-03-21 14:55] LABS: Blood Urea Nitrogen 41 mg/dl (9-20); Calcium 8.6 mg/dl (8.4-10.2); Carbon Dioxide 27 mmol/L (22-30); Chloride 105 mmol/L (98-107); Estimated Creatinine Clearance 76 ml/min; Glucose 174 mg/dl (70-99); Potassium 4.4 mmol/L (3.5-5.1); Sodium 136 mmol/L (135-145); eGFR > 60.00
--- NOTE | 2025-03-21 16:07 | PTCARENOTE ---
Pt ambulated hallways with RN; NSR on monitor and VSS; assessment unchanged and pt resting comfortably in chair.
[2025-03-21] MEDS: LIPITOR 80 MG PO (17:05)
[2025-03-21] MEDS: MAGNESIUM OXIDE PO (19:59)
[2025-03-21] MEDS: REMOVE LIDOCAINE PATCH 1 PATCH REMOVE (20:41)
--- NOTE | 2025-03-21 21:00 | PTCARENOTE ---
Patient resting in recliner chair. Dozing intermittently. Patient A+A+Ox3. No neurological deficits noted. No c/o headache, dizziness or lightheadedness. O2 at 2L via NC. SpO2 97%. Lungs diminished throughout lung brenner. No adventitious
breath sounds noted. No c/o SOB. Sinus Rhythm. Heart rate 80's. Blood pressure 122/72 (82). Patient with no c/o chest pain, pressure or discomfort. Abdomen round with hypoactive to normoactive bowel sounds. No BM. Patient voided 150 ml
diane, yellow urine. Generalized edema. Positive, palpable pulses. Sternal dressing intact. Chest tube dressing intact. Right groin puncture site intact - Ecchymotic. Right lower extremity incision intact - Open to air. Right I.J. Cordis.
Assessment as documented.
[2025-03-22] VITALS (9 sets, daily range): BP systolic 105–135; BP diastolic 67–92; BMI 31.0
--- NOTE | 2025-03-22 | PTCARENOTE ---
Patient sleeping in recliner chair. No further changes from previous assessment.
[2025-03-22] MEDS: ROXICODONE 5 MG PO ×2 (03:29→16:31)
[2025-03-22 04:07] LABS: Hematocrit 24.6 % (39.0-52.0); Hemoglobin 8.1 g/dL (13.0-18.0); Mean Corp Hgb Conc. 32.9 g/dL (33.0-37.0); Mean Corpuscular Volume 93.5 fL (80.0-94.0); Platelet Count 139 10^3/uL (130-400); Red Cell Dist. Width 13.8 % (11.5-14.5)
[2025-03-22] MEDS: DILAUDID 0.25 MG IV (04:29)
[2025-03-22 04:40] LABS: Blood Urea Nitrogen 40 mg/dl (9-20); Calcium 8.7 mg/dl (8.4-10.2); Carbon Dioxide 28 mmol/L (22-30); Chloride 106 mmol/L (98-107); Estimated Creatinine Clearance 105 ml/min; Glucose 126 mg/dl (70-99); Magnesium 2.4 mg/dl (1.6-2.3); Potassium 4.2 mmol/L (3.5-5.1); Sodium 138 mmol/L (135-145); eGFR > 60.00
--- NOTE | 2025-03-22 05:26 | W.PN.CT ---
Today's Communication / Plan
-
-pod #3
-urinary retention persists this AM, >700 on bladder scan and straight cath. Flomax started
-Cr trended 1.2->0.8 today
-CTs out
-Off midodrine, tolerating Toprol XL 25 mg
-started on Colchicine for pericarditis
-current meds (ASA, Plavix, Lipitor, Amio, Zetia, Colchicine, Feosol, vit C, Mg, Protonix, Toprol XL)
-encourage IS, OOB
Assessment / Plan
-
- Ascending aortic enlargement (4.6mm max), mv-CAD - s/p Ascending aortic wrap w/ hemashield graft, CABG x 4 (TEMO to LAD, GSV to D1, GSV to OM1, GSV to distal PDA), ELAA (45mm AtriClip) by Dr. Ariza on 03/19/25, pod #3
- Post-SHIN: normal biventricular function, MEGAN confirmed excluded
- HTN/HLD
- Strong family hx of CAD (all brothers with CAD)
- GERD
- RLS
- Hx hernia
- Acute postop blood loss anemia
- Acute postop pulmonary insufficiency/atelectasis
- Acute postop hypovolemia with subsequent hypervolemia
- Suspected acute postop pericarditis/+ rub
- Acute postop urinary retention
- EDUARD
Subjective
-
Date of Service: March 22, 2025
Objective Data
-
Lab Results
03/22/25 03:46
03/22/25 03:46
PT 16.5 Sec (11.4-14.6) H 03/19/25 14:44
INR 1.28 03/19/25 14:44
APTT 25.9 Sec (23.4-35.0) 03/19/25 14:44
Vital Signs
Vital Signs
Temp Pulse Resp BP Pulse Ox
98.1 F 76 16 125/76 96
03/21/25 22:50 03/22/25 04:21 03/21/25 22:50 03/22/25 03:34 03/22/25 03:34
CT Intake/Output/Weight
03/21/25 03/21/25 03/22/25
06:59 18:59 06:59
Intake Total 390 / 1605.5 640 / 940 300 / 940
Output Total 125 / 665 745 / 1095 350 / 1095
Balance 265 / 940.5 -105 / -155 -50 / -155
SaO2: 96
Physical Exam
-
General: Awake and Oriented
Cardiovascular: Regular rate & rhythm, No Murmurs and Rub
Respiratory: Clear and Equal
Sternum: Stable
Incision: Clean, Dry and Intact
Extremities: No Edema and No Erythema
Data Reviewed
-
Lab Results: Results Reviewed
Medications: Active Meds Reviewed
Chest X-Ray: Report Reviewed
ECG: Report Reviewed
--- NOTE | 2025-03-22 05:30 | PTCARENOTE ---
Patient sleeping in bed. Patient assisted to bathroom with minimal assistance. Patient voided 75 ml diane urine. Patient washed face and brushed teeth. Standing scale weight 98.1 kg. Patient back to bed. Patient bladder scanned for 766 ml.
Straight cath without difficulty for 650 ml medium diane, clear urine. Patient given CHG bath and linens changed. Chest tube dressing changed. Patient back to sleep. Assessment/Interventions as documented.
[2025-03-22] MEDS: TYLENOL PO (05:40)
--- NOTE | 2025-03-22 08:00 | PTCARENOTE ---
assumed care of patient @ 0700. received pt laying in bed, Aox3. VSS on RA. NSR on tele. weak pulses, +1 generalized edema, +2 to uppers and lowers. toprol on hold this morning. lungs clear, diminished satting low 90s on room air. lungs clear,
diminished throughout. belly round, normal bowel sounds. no BM yet, passing gas. was straight cathed overnight. gave lasix this morning, 1st void 2250, 350 PVR. will follow bladder scans. Sternum covered with dressing, R Groin and RLE inscisions
CDI, ABSORPTION OPERATOR. R IJ cordis and PIV patent. pt assisted to chair, resting comfortably with call farah within reach .
[2025-03-22] MEDS: SENOKOT-S 1 TABLET PO ×2 (08:30→20:15)
[2025-03-22] MEDS: COLCHICINE 0.3 MG PO (08:31)
[2025-03-22] MEDS: VITAMIN C 500 MG PO (08:31)
[2025-03-22] MEDS: FEOSOL 325 MG PO (08:32)
[2025-03-22] MEDS: ZETIA 10 MG PO (08:32)
[2025-03-22] MEDS: LOW STRENGTH ASPIRIN 81 MG PO (08:32)
[2025-03-22] MEDS: PROTONIX 40 MG PO (08:32)
[2025-03-22] MEDS: TYLENOL 1000 MG PO ×2 (08:33→22:41)
[2025-03-22] MEDS: NEURONTIN 100 MG PO ×3 (08:33→22:41)
[2025-03-22] MEDS: PLAVIX 75 MG PO (08:33)
[2025-03-22] MEDS: PACERONE 200 MG PO ×3 (08:34→22:41)
[2025-03-22] MEDS: FLOMAX 0.4 MG PO (08:34)
[2025-03-22] MEDS: KCL 20 MEQ PO (08:34)
[2025-03-22] MEDS: MAGNESIUM OXIDE PO ×2 (08:35→20:11)
[2025-03-22] MEDS: LASIX 40 MG IV (08:35)
[2025-03-22] MEDS: LIDOCAINE 4% PATCH 1 PATCH TOPICAL (08:35)
[2025-03-22] MEDS: BACTROBAN 2% OINTMENT 1 APPLIC NASAL ×2 (08:35→20:16)
--- NOTE | 2025-03-22 08:52 | W.PN.CARDCBS ---
Today's Communication / Plan
-
Continues to improve. Remains in sinus.
Continue diuresis and add Flomax for urinary retention.
Hemoglobin at 8.1. Continue to follow.
Continue aspirin, Plavix, amiodarone, and metoprolol.
Impression / Plan
-
Primary Honeycomb Blanket Maker: Dr. Adrien Foley
Assessment:
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
HLD
Family history of CAD
Transthoracic echo at [facility] 12/05/2024: EF 60 to 65%, grade 1 diastolic dysfunction, no significant valvular disease
Plan:
- s/p CABG x4 TEMO to LAD, GSV to D1, GSV to OM1, GSV to distal PDA, MEGAN clip 03/19/25
-Had a mild rub on exam with some diffuse ST elevation. Continue colchicine. Pain much improved.
-Continue aspirin, Plavix, metoprolol, and amiodarone.
-Creatinine overall improved at 0.8 status post diuresis. Having some urinary retention. Agree with Flomax. Continue Lasix.
Hg 8.1
Continue Lipitor and Zetia.
Progress Note - Honeycomb Blanket Maker
Subjective
Date of Service: March 22, 2025
Feels better. Chest pain is much improved. Did have some urinary retention and now starting Flomax. Did require straight cath.
Objective
Labs:
03/22/25 03:46
03/22/25 03:46
Labs
Hgb 8.1 g/dL (13.0-18.0) L 03/22/25 03:46
Hct 24.6 % (39.0-52.0) L 03/22/25 03:46
Plt Count 139 10^3/uL (130-400) 03/22/25 03:46
PT 16.5 Sec (11.4-14.6) H 03/19/25 14:44
INR 1.28 03/19/25 14:44
APTT 25.9 Sec (23.4-35.0) 03/19/25 14:44
Sodium 138 mmol/L (135-145) 03/22/25 03:46
Potassium 4.2 mmol/L (3.5-5.1) 03/22/25 03:46
BUN 40 mg/dl (9-20) H 03/22/25 03:46
Creatinine 0.8 mg/dL (0.7-1.3) 03/22/25 03:46
Glucose 126 mg/dl (70-99) H 03/22/25 03:46
Vital Signs and I&O:
Vital Signs
Temp Pulse Resp BP Pulse Ox
98.4 F 76 16 125/76 96
03/22/25 03:35 03/22/25 04:21 03/22/25 03:35 03/22/25 03:35 03/22/25 05:28
Vital Signs
Temp Pulse Resp BP Pulse Ox
98.4 F 76 16 125/76 96
03/22/25 03:35 03/22/25 04:21 03/22/25 03:35 03/22/25 03:35 03/22/25 05:28
Intake & Output
03/20/25 03/21/25 03/22/25 03/23/25
06:59 06:59 06:59 06:59
Intake Total 2204.1 / 2204.1 1605.5 / 1605.5 980 / 980
Output Total 1196 / 1196 665 / 665 1820 / 1820
Balance 1008.1 / 1008.1 940.5 / 940.5 -840 / -840
Physical Exam
Physical Exam
GEN: No distress, awake, Ox3
HEENT: supple, anicteric, mmm
LUNGS: CTA, no wheezes/rales
CV: Reg, S1/S2, 1/6 syst LSB, no gallop
ABD: soft, BS+, NT/ND
EXT: No edema
NEURO: Gross non-focal
SKIN: No rash
[2025-03-22] MEDS: TOPROL XL PO (09:39)
--- NOTE | 2025-03-22 10:38 | PTCARENOTE ---
pt walked all the way to IVU waiting room and back with steady gait
--- NOTE | 2025-03-22 12:23 | PTCARENOTE ---
pt resting comfortably in chair, call farah within reach .
[2025-03-22] MEDS: MIRAPEX, GENERIC 0.5 MG PO (13:55)
[2025-03-22] MEDS: FERRLECIT 110 MG IV (13:56)
[2025-03-22] MEDS: NSS 500 IV (13:56)
[2025-03-22] MEDS: LOPRESSOR 12.5 MG PO (14:21)
[2025-03-22] MEDS: LIPITOR 80 MG PO (16:32)
--- NOTE | 2025-03-22 16:44 | PTCARENOTE ---
pt walked to IVU waiting room and back 2 more times, HR slightly tachy, 12.5 lopressor given. now resting in chair with call farah within reach .
[2025-03-22] MEDS: FLEXERIL 5 MG PO (19:13)
[2025-03-22] MEDS: REMOVE LIDOCAINE PATCH 1 PATCH REMOVE (20:16)
--- NOTE | 2025-03-22 20:24 | PTCARENOTE ---
Patient received from RN @ 1900. Patient sitting in chair w/ call farah in reach. AOx3. SR on monitor. BP 127/78 HR 83. Heart sounds audible. Radial pulses present Pedal pulses weak on palpation. +1 generalized edema noted. +2 lower and upper
bilateral extremity noted. Lung sounds diminished throughout. POX 99% 2L NC. Small BM noted. Bowel sounds hypoactive. Patient having difficulty urinating. Sternal dressing dry and intact. Right groin puncture and Right leg incisions well
approximated JEWEL GAUGER. CT dressing dry and intact. RIJ cordis and Right PIV patent and intact. See worklist for more details.
[2025-03-23] VITALS (14 sets, daily range): BP systolic 95–157; BP diastolic 61–79; PULSE 90; O2SAT 96; BMI 31.1
--- NOTE | 2025-03-23 00:08 | PTCARENOTE ---
Patient reassessed. SR on monitor. BP 120/76 HR 84 POX 96% 2L NC.
--- NOTE | 2025-03-23 03:55 | PTCARENOTE ---
Patient reassessed. Patient stood to use urinal. Low urine output, bladder scan for 446 post void residual. Patient states feels the urge to void. Will attempt to void again in 30 mins.
[2025-03-23 04:04] LABS: Hematocrit 23.5 % (39.0-52.0); Hemoglobin 7.9 g/dL (13.0-18.0); Mean Corp Hgb Conc. 33.6 g/dL (33.0-37.0); Mean Corpuscular Volume 92.5 fL (80.0-94.0); Platelet Count 160 10^3/uL (130-400); Red Cell Dist. Width 13.9 % (11.5-14.5)
[2025-03-23 04:27] LABS: Blood Urea Nitrogen 33 mg/dl (9-20); Calcium 8.7 mg/dl (8.4-10.2); Carbon Dioxide 30 mmol/L (22-30); Chloride 103 mmol/L (98-107); Estimated Creatinine Clearance 105 ml/min; Glucose 109 mg/dl (70-99); Magnesium 2.4 mg/dl (1.6-2.3); Potassium 4.5 mmol/L (3.5-5.1); Sodium 136 mmol/L (135-145); eGFR > 60.00
--- NOTE | 2025-03-23 04:39 | PTCARENOTE ---
Patient attempted to void. Urinary retention noted. Bladder scan 442 post void residual. [facility] notified. Patient complains of no pain or irritation in his bladder. Will continue to monitor and give flomax early per [facility].
--- NOTE | 2025-03-23 04:44 | W.PN.CT ---
Today's Communication / Plan
-
Off midodrine, tolerating Toprol XL 25 mg�
Urinary retention continues = started on Flomax, continue urinary retention overnight, flomax given earlier on 03/23 in hopes to improving voiding, required straight cath* 2 on 03/22 and 03/23, if patient continues to have urinary retention place
lai catheter and urology consult.
Current meds (ASA, Plavix, Lipitor, Amio, Zetia, Colchicine, Feosol, vit C, Mg, Protonix, Toprol XL)
Remove cordis�
Encourage IS and OOB�
Assessment / Plan
-
- Ascending aortic enlargement (4.6mm max), mv-CAD - s/p Ascending aortic wrap w/ hemashield graft, CABG x 4 (TEMO to LAD, GSV to D1, GSV to OM1, GSV to distal PDA), ELAA (45mm AtriClip) by Dr. Ariza on 03/19/25, pod #4
- Post-SHNI: normal biventricular function, MEGAN confirmed excluded
- HTN/HLD
- Strong family hx of CAD (all brothers with CAD)
- GERD
- RLS
- Hx hernia
- Acute postop blood loss anemia
- Acute postop pulmonary insufficiency/atelectasis
- Acute postop hypovolemia with subsequent hypervolemia
- Suspected acute postop pericarditis/+ rub
- Acute postop urinary retention
- EDUARD
Subjective
-
Date of Service: March 23, 2025
Objective Data
-
Lab Results
03/23/25 03:44
03/23/25 03:44
PT 16.5 Sec (11.4-14.6) H 03/19/25 14:44
INR 1.28 03/19/25 14:44
APTT 25.9 Sec (23.4-35.0) 03/19/25 14:44
Vital Signs
Vital Signs
Temp Pulse Resp BP Pulse Ox
98 F 83 15 111/73 95
03/23/25 03:54 03/23/25 03:48 03/23/25 03:54 03/23/25 03:48 03/23/25 03:54
CT Intake/Output/Weight
03/22/25 03/22/25 03/23/25
06:59 18:59 06:59
Intake Total 340 / 980 580 / 610 30 / 610
Output Total 1075 / 1820 900 / 1125 225 / 1125
Balance -735 / -840 -320 / -515 -195 / -515
SaO2: 95
Physical Exam
-
General: Awake
Cardiovascular: Regular rate & rhythm
Respiratory: Clear and Equal
Sternum: Stable
Incision: Clean, Dry and Intact
Extremities: No Edema
[2025-03-23] MEDS: FLOMAX 0.4 MG PO ×2 (05:06→17:13)
[2025-03-23] MEDS: TYLENOL 1000 MG PO ×3 (05:06→23:00)
[2025-03-23] MEDS: DILAUDID 0.25 MG IV ×2 (06:13→23:01)
--- NOTE | 2025-03-23 06:35 | PTCARENOTE ---
Post void residual 412mL. Straight cath for 475mL.
[2025-03-23] MEDS: NEURONTIN 100 MG PO ×3 (08:31→23:00)
[2025-03-23] MEDS: BACTROBAN 2% OINTMENT 1 APPLIC NASAL (08:31)
[2025-03-23] MEDS: SENOKOT-S 1 TABLET PO (08:32)
[2025-03-23] MEDS: LOW STRENGTH ASPIRIN 81 MG PO (08:32)
[2025-03-23] MEDS: VITAMIN C 500 MG PO (08:32)
[2025-03-23] MEDS: FEOSOL 325 MG PO (08:32)
[2025-03-23] MEDS: PACERONE 200 MG PO ×3 (08:32→23:00)
[2025-03-23] MEDS: PROTONIX 40 MG PO (08:32)
[2025-03-23] MEDS: PLAVIX 75 MG PO (08:32)
[2025-03-23] MEDS: LIDOCAINE 4% PATCH 1 PATCH TOPICAL (08:32)
[2025-03-23] MEDS: ZETIA 10 MG PO (08:32)
[2025-03-23] MEDS: TOPROL XL 25 MG PO (08:32)
[2025-03-23] MEDS: COLCHICINE 0.3 MG PO (08:32)
[2025-03-23] MEDS: MAGNESIUM OXIDE PO ×2 (08:33→20:17)
--- NOTE | 2025-03-23 09:00 | PTCARENOTE ---
Assumed care of pt from dayshift RN. Walking rounds completed. Pt is AAOx3. SR on the tele monitor. HR 80s. BP stable. Palpable pulses throughout.
+2 b/l LE edema and +1 b/l UE edema present. Lopressor increased to 25 mg this AM - see SEP. Pt on RA. POX 95%. Lung sounds diminished in the bases. Deep breathing and IS encouraged. Abdomen nontender. +BSx4. Pt w/ some urinary retention. Per PA -
discuss before next straight-cath. All surgical sites stable. Right IJ cordis and PIV intact. See worklist for full nursing assessment and interventions. Pt updated w/ plan for the day. Call farah within reach.
[2025-03-23] MEDS: LASIX 40 MG IV (09:43)
--- NOTE | 2025-03-23 12:04 | PTCARENOTE ---
Pt w/ bright red blood in loose BM. PA notified. Pt states they feel a little dizzy. Pressure 116/72. HR 84. POX 96% on RA. No SOB. H&H and type and screen drawn and sent.
[2025-03-23] MEDS: NSS IV (12:07)
[2025-03-23 12:15] LABS: Hematocrit 25.3 % (39.0-52.0); Hemoglobin 8.4 g/dL (13.0-18.0); Mean Corp Hgb Conc. 33.2 g/dL (33.0-37.0); Mean Corpuscular Volume 94.8 fL (80.0-94.0); Platelet Count 172 10^3/uL (130-400); Red Cell Dist. Width 13.9 % (11.5-14.5)
[2025-03-23] MEDS: MIRAPEX, GENERIC 0.5 MG PO (13:19)
--- NOTE | 2025-03-23 15:49 | W.PN.CARDCBS ---
Addendum entered and electronically signed by Marcell Raza MD 03/23/25 19:29:
Patient's only complaint today is urinary hesitancy.
Medications: Reviewed, amiodarone is 200 3 times daily at present.
107/67, pulse 89, sinus, respiratory rate 18, weight is 98 kg, diminished breath sounds left base, no rub at present, incision intact, SVG harvest site intact, neck veins are good no substantial edema
Hemoglobin is 8.4, BUN/creatinine are 33 and 0.8 and potassium 5
Chest x-ray, some haziness left base, clip in place this, drains out
Impression:
See below
Doing well status post CABG x 4 with left atrial appendage clip 03/19/[address] of [address] surgery
We will continue to follow
Original Note:
Today's Communication / Plan
-
cont diuresis
eventual cardiac rehab
Impression / Plan
-
Primary Skirt Panel Assembler: Dr. Adrien Foley
Assessment:
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
HLD
Family history of CAD
Transthoracic echo at [facility] 12/05/2024: EF 60 to 65%, grade 1 diastolic dysfunction, no significant valvular disease
Plan:
- s/p CABG x4 TEMO to LAD, GSV to D1, GSV to OM1, GSV to distal PDA, MEGAN clip 03/19/25
-started on colchicine 03/20/2025 for pain and rub on exam - denies current CP. no rub on exam
-Continue aspirin, Plavix, metoprolol, and amiodarone.
-telem personally reviewed: NSR 80-90s
-rec'd Lasix 40 IV daily x 3 days -cont diuresis
-Creatinine stable at 0.8.
-Having some urinary retention and followed by urology. On Flomax.
Hg 8.4
Continue Lipitor and Zetia.
-plans to eventually do cardiac rehab at [facility] which is close to his home
Progress Note - Skirt Panel Assembler
Subjective
Date of Service: March 23, 2025
remains in NSR
still with urinary retention
walked around floor - felt good - no SOB, dizziness
Objective
Labs:
03/23/25 11:56
03/23/25 03:44
Labs
Hgb 8.4 g/dL (13.0-18.0) L 03/23/25 11:56
Hct 25.3 % (39.0-52.0) L 03/23/25 11:56
Plt Count 172 10^3/uL (130-400) 03/23/25 11:56
PT 16.5 Sec (11.4-14.6) H 03/19/25 14:44
INR 1.28 03/19/25 14:44
APTT 25.9 Sec (23.4-35.0) 03/19/25 14:44
Sodium 136 mmol/L (135-145) 03/23/25 03:44
Potassium 4.5 mmol/L (3.5-5.1) 03/23/25 03:44
BUN 33 mg/dl (9-20) H 03/23/25 03:44
Creatinine 0.8 mg/dL (0.7-1.3) 03/23/25 03:44
Glucose 109 mg/dl (70-99) H 03/23/25 03:44
Vital Signs and I&O:
Vital Signs
Temp Pulse Resp BP Pulse Ox
98 F 99 18 95/61 98
03/23/25 15:40 03/23/25 15:40 03/23/25 15:40 03/23/25 15:40 03/23/25 15:40
Vital Signs
Temp Pulse Resp BP Pulse Ox
98 F 99 18 95/61 98
03/23/25 15:40 03/23/25 15:40 03/23/25 15:40 03/23/25 15:40 03/23/25 15:40
Intake & Output
03/21/25 03/22/25 03/23/25 03/24/25
06:59 06:59 06:59 06:59
Intake Total 1605.5 / 1605.5 980 / 980 610 / 610
Output Total 665 / 665 1820 / 1820 1625 / 1625 400 / 400
Balance 940.5 / 940.5 -840 / -840 -1015 / -1015 -390 / -390
Physical Exam
Physical Exam
GEN: No distress, awake, Ox3
HEENT: supple, anicteric, mmm
LUNGS: CTA, no wheezes/rales
CV: Reg, S1/S2, no rub, no murmur
ABD: soft, BS+, NT/ND
EXT: trace B/L LE edema, tight
NEURO: Gross non-focal
SKIN: No rash
--- NOTE | 2025-03-23 16:03 | PTCARENOTE ---
Pt reassessed. SR on the tele monitor. HR 80s. BP stable. Pt 98% on RA. Pt w/ urinary retention. Voiding minimally - as documented in I&O. Bladder scanned ~1430 for 457ml. CTPA notified - no straight cath at this time per PA. Walk around unit w/
minimal assist. Flomax ordered for 1999. No BM since bloody BM earlier in day - hemoglobin stable w/ repeat labs. Pt denies pain at this time. 2-view xray completed. Call farah within reach.
[2025-03-23] MEDS: LIPITOR 80 MG PO (17:13)
--- NOTE | 2025-03-23 17:20 | PTCARENOTE ---
UO remains low. Repeat bladder scan 431 ml. Pt reports slight urge to void but no pain or distention. PA aware. No straight cath or lai at this time per PA. 2000 dose of flomax given early.
[2025-03-23] MEDS: REMOVE LIDOCAINE PATCH 1 PATCH REMOVE (20:30)
[2025-03-23] MEDS: SENOKOT-S PO (20:30)
--- NOTE | 2025-03-23 20:30 | PTCARENOTE ---
Patient received OOB in chair. Patient A+A+Ox3. No neurological deficits noted. Patient to bathroom with minimal assistance. Patient sat on toilet. Positive void and loose brown stool. Small amount of bright red blood noted in toilet and when
patient wiped buttock. Patient to bed. Room air. SpO2 98%. Sinus Rhythm. Heart rate 90's. Blood pressure 157/74 (97). Roxicodone 5mg PO for c/o sternal pain. No c/o chest pain, pressure or discomfort. Abdomen round, distended. Normoactive
bowel sounds. Generalized edema. Positive, palpable pulses. Sternal dressing intact. Four chest tube sutures intact and open to air. Right groin puncture site intact. Right lower extremity incision intact - Open to air. Assessment as
documented.
[2025-03-23] MEDS: ROXICODONE 5 MG PO (20:31)
[2025-03-23] MEDS: MYLICON 160 MG PO (23:01)
[2025-03-23] MEDS: MUCINEX 600 MG PO (23:01)
--- NOTE | 2025-03-23 23:30 | PTCARENOTE ---
Patient to bathroom - Sitting on toilet for twenty minutes. Back to bed. Voided in toilet. Positive liquidity,loose brown stool in toilet - No blood noted in toilet. Small amount of bright red blood after wiping buttock. Patient with c/o 6/10
sternal pain - IV Dilaudid 0.25 given. Mucinex 600 mg PO ordered and given per PA. Mylicon 160 mg PO ordered and given per PA. Bladder scanned - 522 ml. PA made aware. Patient with no c/o bladder pain, pressure, spasm or discomfort. Re-scan
after next void. Assessment/Interventions as documented.
[2025-03-24] VITALS (7 sets, daily range): BP systolic 112–160; BP diastolic 65–86; PULSE 83; O2SAT 94–98; BMI 30.7
[2025-03-24] MEDS: ROXICODONE 5 MG PO (01:39)
[2025-03-24 03:57] LABS: Hematocrit 22.6 % (39.0-52.0); Hemoglobin 7.5 g/dL (13.0-18.0); Mean Corp Hgb Conc. 33.2 g/dL (33.0-37.0); Mean Corpuscular Volume 95.0 fL (80.0-94.0); Platelet Count 174 10^3/uL (130-400); Red Cell Dist. Width 14.1 % (11.5-14.5)
--- NOTE | 2025-03-24 04:00 | PTCARENOTE ---
Patient sleeping. AM lab work collected and sent. No urge to void. No c/o bladder pain, pressure, spasm or discomfort. Bladder scanned for [address] Surgery, Irma Ibrahim PA-C, showed bladder scan result - No Jim placement at this
time. Continue to monitor. Assessment/Interventions as documented.
--- NOTE | 2025-03-24 04:16 | W.PN.CT ---
Today's Communication / Plan
-
-pod #5
-hypotension resolved, tolerating 25 mg Toprol
-started on Flomax for urinary retention, has incomplete emptying with urinary residuals 500s overnight, asymptomatic
-wt trended down 3 lbs since yesterday, but is still up 6 lbs from preop (207 to 213 lbs on 03/24). Diuresed with 40 iv Lasix on 03/23- continue
-Hg 7.5 today (7.9 on 03/23 with re-check Hg 8.4)
-Mucinex for cough
-Current meds (ASA, Plavix, Lipitor, Amio, Zetia, Colchicine, Folmax, Mucinex, Feosol, vit C, Mg, Protonix, Toprol XL)
-Encourage IS and OOB�
Assessment / Plan
-
- Ascending aortic enlargement (4.6mm max), mv-CAD - s/p Ascending aortic wrap w/ hemashield graft, CABG x 4 (TEMO to LAD, GSV to D1, GSV to OM1, GSV to distal PDA), ELAA (45mm AtriClip) by Dr. Ariza on 03/19/25, pod #5
- Post-SHIN: normal biventricular function, MEGAN confirmed excluded
- HTN/HLD
- Strong family hx of CAD (all brothers with CAD)
- GERD
- RLS
- Hx hernia
- Acute postop blood loss anemia
- Acute postop pulmonary insufficiency/atelectasis
- Acute postop hypovolemia with subsequent hypervolemia
- Suspected acute postop pericarditis/+ rub
- Acute postop urinary retention
- EDUARD
Discussed patient care with: Nursing and Care Team
Subjective
-
Date of Service: March 24, 2025
Objective Data
-
Lab Results
03/24/25 03:48
PT 16.5 Sec (11.4-14.6) H 03/19/25 14:44
INR 1.28 03/19/25 14:44
APTT 25.9 Sec (23.4-35.0) 03/19/25 14:44
Vital Signs
Vital Signs
Temp Pulse Resp BP Pulse Ox
98.6 F 89 16 143/79 96
03/23/25 22:55 03/24/25 00:45 03/23/25 22:55 03/23/25 23:00 03/23/25 22:56
CT Intake/Output/Weight
03/23/25 03/23/25 03/24/25
06:59 18:59 06:59
Intake Total 30 / 610 10 / 250 240 / 250
Output Total 725 / 1625 425 / 475 50 / 475
Balance -695 / -1015 -415 / -225 190 / -225
SaO2: 96
Physical Exam
-
General: Awake and AOx3
Cardiovascular: No Murmurs and No Rub
Respiratory: Decreased Breath Sounds
Sternum: Stable
Incision: Clean, Dry and Dressing Intact
Extremities: Edema +2
Abdomen: soft, distended, + bowel sounds, no nausea
Data Reviewed
-
Lab Results: Results Reviewed
Medications: Active Meds Reviewed
Chest X-Ray: Report Reviewed and Image Reviewed
ECG: Report Reviewed and Image Reviewed
[2025-03-24 04:45] LABS: Blood Urea Nitrogen 29 mg/dl (9-20); Calcium 8.6 mg/dl (8.4-10.2); Carbon Dioxide 31 mmol/L (22-30); Chloride 102 mmol/L (98-107); Estimated Creatinine Clearance 105 ml/min; Glucose 111 mg/dl (70-99); Potassium 4.2 mmol/L (3.5-5.1); Sodium 136 mmol/L (135-145); eGFR > 60.00
[2025-03-24] MEDS: TYLENOL 1000 MG PO (06:07)
--- NOTE | 2025-03-24 06:30 | PTCARENOTE ---
Patient A+A+Ox3. No neurological deficits noted. Patient voided 150 ml light diane, yellow urine. Patient walked with RN to [facility] - Sat in lounge and talked - Then, walked back to room. No VERDUGO. No c/o SOB. No c/o pain or discomfort. Patient
resting in chair. Assessment/Interventions as documented.
--- NOTE | 2025-03-24 08:32 | PTCARENOTE ---
Patient received from night shift supervisor resting oob in chair, AAO x 3, states pain controlled at this time. NSR via cm, SaO2 @ 97% on RA. Patient voided, bladder scanned PVI - results conveyed to ANKIT Grimm. All procedural sites stable. Patient updated
to plan of care for the day, in agreement. See work list for full assessment and interventions performed.
[2025-03-24] MEDS: COLCHICINE 0.3 MG PO (08:48)
[2025-03-24] MEDS: LASIX 40 MG IV (08:48)
[2025-03-24] MEDS: LOW STRENGTH ASPIRIN 81 MG PO (08:49)
[2025-03-24] MEDS: VITAMIN C 500 MG PO (08:49)
[2025-03-24] MEDS: FLOMAX 0.4 MG PO (08:49)
[2025-03-24] MEDS: MUCINEX 600 MG PO (08:49)
[2025-03-24] MEDS: SENOKOT-S 1 TABLET PO (08:49)
[2025-03-24] MEDS: PLAVIX 75 MG PO (08:49)
[2025-03-24] MEDS: TOPROL XL 25 MG PO (08:49)
[2025-03-24] MEDS: NEURONTIN 100 MG PO (08:50)
[2025-03-24] MEDS: LIDOCAINE 4% PATCH TOPICAL (08:50)
[2025-03-24] MEDS: PROTONIX 40 MG PO (08:50)
[2025-03-24] MEDS: FEOSOL 325 MG PO (08:50)
[2025-03-24] MEDS: MAGNESIUM OXIDE 400 MG PO (08:50)
[2025-03-24] MEDS: ZETIA 10 MG PO (08:50)
[2025-03-24] MEDS: PACERONE 200 MG PO (08:50)
[2025-03-24] MEDS: NSS IV (08:51)
--- NOTE | 2025-03-24 10:26 | W.DCSUMMARY ---
Discharge Summary
Discharge Data
Date of Admission: 03/19/25
Date of Discharge: 03/24/25
-
Pending Results: No
Hospital Course
Primary care physician: Gatito
Outpatient job cost estimator: Adrien Foley
Inpatient consultants: JESSA
Procedures:
1. 03/19/25 CABG x4 (KU-LAD, SVG-D1, SVG-OM1, SVG-PDA) + Ascending Aortic Wrap w/ Hemashield Graft, ELAA #[address] Robbie Ariza
Primary Diagnosis:
1. multivessel coronary artery disease
2. ascending aortic enlargement
Secondary Diagnoses:
1. hypertension
2. Hyperlipidemia
3. Family history of premature coronary artery disease
4. GERD
5. Restless leg syndrome
6. Postop acute blood loss anemia, stable; repeat CBC in 1 week
7. Postop urinary retention, suspect some degree of chronic retention with PVR, started on Flomax
8. Postoperative EDUARD, peak creatinine 1.2, resolved
HPI: Patient is a 69-year-old male with strong family history of coronary artery disease who underwent a outpatient calcium score which led him to an elective cardiac catheterization and demonstrated severe multivessel coronary artery disease. Echo
showed preserved EF with no significant valve disease, CT of his chest demonstrated a mildly dilated ascending aorta at 4.6 cm. Patient was therefore referred for evaluation for CABG.
Hospital course: Patient was brought in electively on 03/19/2025 where he underwent a CABG x4 with KU to LAD, saphenous vein graft to D1, saphenous vein graft to OM and saphenous vein graft to PDA with ascending aortic wrap with a Hemashield graft
and exclusion of his left atrial appendage by Dr. Robbie Ariza. Patient transferred to CVICU per protocol on Levophed at 4, insulin and Precedex. Postop EKG demonstrated sinus bradycardia, he extubated that evening at approximately 6:45 PM. He
remained hemodynamically stable overnight on postop day 1 all vasoactive drips have been weaned off but blood pressure was slightly low in the evening and midodrine was added. He was started on colchicine for suspected pericarditis and given
Toradol for additional pain control. Jim was discontinued. On postop day 2 patient is voiding but having postvoid residuals, chest tubes discontinued without incident. Midodrine has been held and he was started on low-dose beta-von. IV
diuresis was started. On postop day 3 he required a straight cath x 1 for urinary retention and Flomax was started. Beta-blockers titrated up and he continues with gentle diuresis. On postop day 4 he continues to have postvoid residuals, but
voiding and no pelvic discomfort. Cordis is discontinued. Two-view chest x-ray demonstrates small bilateral effusions, he continues with IV diuresis. On postop day 5 he is ambulatory, feeling well. Hemoglobin is 7.5, but patient remains in
asymptomatic with stable blood pressure. He will have a CBC rechecked in a week. he has voided x 2 with greater than 400 out. Discussed with patient that this problem is likely chronic and he should follow-up with his PCP or urologist for
continuation of care. Plan is for discharge to home with close follow-up with the transitional care nurse from [facility] who will see him in a few days.
Home medication changes: New prescription provided for Plavix for vein graft patency, 5-day supply of Lasix and potassium supplementation for postop volume overload. Recommend iron supplement for postop acute blood loss anemia. Prescription
provided for Flomax for urinary retention, patient to continue until seen by PCP or urology. Prescription provided for oxycodone if needed for postsurgical pain, patient unsure if he will fill it but will continue taking Tylenol as needed for pain.
*note that d/c summary says 'stopped' lipitor, zetia & pramipexole--this is a glitch in EMR system--these meds (from home) are continued.
Discharge Plan
-
Patient Disposition: Home (Routine Discharge)
Discharge Diagnosis/Procedures: CABG X 4, ascending aorta wrap, left atrial appendage clip (03/19/25)
Condition: Good
Diet: Low Cholesterol and Low Sodium
Activity: No strenuous activity
Driving Restrictions: Not until seen by your Dr
Bathing Restrictions: OK to Shower
Blood Work: have CBC checked in 1 week
Other Services: Cardiac Rehab
Specialty Instructions: Weigh Daily- Call MD for wt gain/loss 3 lbs overnight/5 lbs in 1 week
Activity Restrictions/Additional Instructions:
ACTIVITY:
-No strenuous activity: no heavy lifting, pushing, pulling anything over 15 pounds for one month
-continue to use stairs as tolerated
DRIVING RESTRICTIONS:
-No driving for one month or until approved by your surgeon
WOUND CARE:
-Shower daily. Use soap & water.
-No lotions, creams or powders on incision area.
DIET:
-continue a low fat/low cholesterol diet.
-IF you are diabetic, continue carb controlled diet.
CARDIAC REHAB:
-Please make appointment to start in 5-6 weeks with your local hospital program. (See Cardiac Rehabilitation Discharge Booklet).
Please call [facility] to get scheduled. P: [phone]
SPECIALTY INSTRUCTIONS:
-Weigh yourself daily. Call your physician for any weight gain/loss of 3 lbs overnight or 5 lbs in one week.
-REPORT any clicking noise or uneven appearance of your sternum to your surgeon immediately.
-If you smoke, you are instructed to quit. The [place] smoking hotline phone number is [phone]
Please discuss (likely chronic) urinary retention issues with your PCP or urologist. Seek emergency care if you are unable to void for a prolonged period of time or have pelvic pain and unable to void.
Referrals:
CT Transitional Care Nurse [Outside]
Referral Note: The Cardiothoracic Transitional Care Nurse will call you to set up a visit in 1-2 days.
Leanne Castillo CRNP [Specified Professional Personl, Cardiology] - 04/27/25 10:20 am
Sebastian Mederos MD [Family Provider, Internal Medicine]
Alvarez Dumont MD [Active, Cardiac Surgery] - 04/21/25 1:30 pm
Prescriptions:
New
acetaminophen 325 mg Tablet
650 mg PO Q6HPRN PRN (Reason: mild pain,headache,temp >101F ) Qty: 0 0RF
sennosides-docusate sodium 8.6-50 mg Tablet
1 tab PO Q12 PRN (Reason: Constipation) Qty: 0 0RF
clopidogrel 75 mg Tablet
75 mg PO DAILY Qty: 30 1RF
tamsulosin 0.4 mg Capsule
0.4 mg PO DAILY Qty: 30 1RF
ferrous sulfate [FeroSul] 325 mg (65 mg iron) Tablet
325 mg PO DAILY Qty: 30 1RF
furosemide [Lasix] 40 mg tablet
40 mg PO DAILY Qty: 5 0RF
potassium chloride [Klor-Con M20] 20 mEq tablet,ER particles/crystals
20 meq PO DAILY Qty: 5 0RF
oxycodone 5 mg tablet
2.5 - 5 mg PO Q6HPRN PRN (Reason: moderate to severe pain) Qty: 10 0RF
pramipexole 0.5 mg Tablet
0.5 mg PO DAILY@1400 Qty: 0 0RF
atorvastatin 80 mg Tablet
80 mg PO QPM Qty: 0 0RF
ezetimibe 10 mg Tablet
10 mg PO DAILY Qty: 0 0RF
Continued
vitamin B complex Capsule
1 cap PO DAILY
Multi Vitamin 9 mg iron/15 mL Liquid
9 ml PO DAILY
metoprolol succinate 25 mg Tablet Extended Release 24 Hr
25 mg PO DAILY
omega 7-twq-soe-fish oil [Fish Oil] 1,000 (120-180) mg Capsule
1 cap PO DAILY Qty: 0 0RF
aspirin 81 mg Capsule
81 mg PO DAILY Qty: 0 0RF
Discontinued
ezetimibe [Zetia] 10 mg Tablet
10 mg PO DAILY
atorvastatin [Lipitor] 80 mg tablet
80 mg PO QPM Qty: 90 5RF
pramipexole 0.5 mg Tablet
0.5 mg PO DAILY
Discharge Orders:
Discharge Patient (As Directed); Ordered 03/24/25
Ordered By: Nely Grimm
Care Plan Goals
Care Plan Goals:
Problem: Readiness for enhanced knowledge related to diagnosis and treatment plan
Goal: Understand your diagnosis and treatment plan needs, including medications if applicable.
Instructions: Know your diagnosis, underlying causes and treatment plan options, including medications if applicable. Consult with your health care team to learn about your diagnosis and treatment plan, including medications if applicable.
Discharge Date and Time
Print Language: FRISIAN
--- NOTE | 2025-03-24 12:20 | PTCARENOTE ---
VS obtained, assessment stable. Patient resting oob in chair, awaiting d/c.
--- NOTE | 2025-03-24 13:37 | W.PN.CARDCBS ---
Addendum entered and electronically signed by Zuhair Robledo MD 03/24/25 14:47:
I saw and examined the patient.
The Armature Winder's note was reviewed and I agree with the note.
Comment:
GEN: No distress, awake, Ox3
HEENT: supple, anicteric, mmm
LUNGS: CTA, no wheezes/rales
CV: Reg, S1/S2, no rub
ABD: soft, BS+, NT/ND
EXT: No edema
NEURO: Gross non-focal
SKIN: No rash
PLan:
Overall doing well. Okay for discharge.
Urine much improved on Flomax. Hemoglobin at 7.5. Continue to follow as outpatient.
Creatinine 0.8
Original Note:
Today's Communication / Plan
-
planned for DC today
continue po diuresis upon DC
continue asa, plavix, lipitor, zetia, toprol
Impression / Plan
-
Primary Consulting Technical Director: Dr. Adrien Foley
Assessment:
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
HLD
Family history of CAD
Transthoracic echo at [facility] 12/05/2024: EF 60 to 65%, grade 1 diastolic dysfunction, no significant valvular disease
Plan:
-s/p CABG x4 TEMO to LAD, GSV to D1, GSV to OM1, GSV to distal PDA, MEGAN clip 03/19/25
- Hemoglobin down to 7.5. Continue to monitor as an outpatient. Continue aspirin and Plavix
- Remains in sinus rhythm on review of telemetry
- Weight remains up compared to preoperatively and with lower extremity edema. Continue p.o. diuresis upon discharge. Creatinine stable at 0.8
- Treatment of urinary retention per primary service, on Flomax
- Continue Lipitor and Zetia.
- plans to eventually do cardiac rehab at [facility] which is close to his home
- OP cardiac follow up arranged
- planned for DC to home today
- d/w nursing
Progress Note - Consulting Technical Director
Subjective
Date of Service: March 24, 2025
No complaints. For discharge today
Objective
Labs:
03/24/25 03:48
03/24/25 03:48
Labs
Hgb 7.5 g/dL (13.0-18.0) L 03/24/25 03:48
Hct 22.6 % (39.0-52.0) L 03/24/25 03:48
Plt Count 174 10^3/uL (130-400) 03/24/25 03:48
PT 16.5 Sec (11.4-14.6) H 03/19/25 14:44
INR 1.28 03/19/25 14:44
APTT 25.9 Sec (23.4-35.0) 03/19/25 14:44
Sodium 136 mmol/L (135-145) 03/24/25 03:48
Potassium 4.2 mmol/L (3.5-5.1) 03/24/25 03:48
BUN 29 mg/dl (9-20) H 03/24/25 03:48
Creatinine 0.8 mg/dL (0.7-1.3) 03/24/25 03:48
Glucose 111 mg/dl (70-99) H 03/24/25 03:48
Vital Signs and I&O:
Vital Signs
Temp Pulse Resp BP Pulse Ox
98.1 F 100 15 112/65 97
03/24/25 12:24 03/24/25 12:30 03/24/25 12:24 03/24/25 12:18 03/24/25 12:24
Vital Signs
Temp Pulse Resp BP Pulse Ox
98.1 F 100 15 112/65 97
03/24/25 12:24 03/24/25 12:30 03/24/25 12:24 03/24/25 12:18 03/24/25 12:24
Intake & Output
03/22/25 03/23/25 03/24/25 03/25/25
07:59 07:59 07:59 07:59
Intake Total 980 / 1000 610 / 620 250 / 250 240 / 240
Output Total 1820 / 1820 1625 / 1625 675 / 675 775 / 775
Balance -840 / -820 -1015 / -1005 -425 / -425 -535 / -535
Physical Exam
Physical Exam
GEN: No distress, awake, alert, oriented x3
HEENT: supple, anicteric, mmm, eomi
LUNGS: Few crackles, no wheezes
CV: Reg, S1/S2, no murmur
ABD: soft, BS+, NT/ND
EXT: No cyanosis, clubbing. 2+ edema of B/L LE
NEURO: Gross non-focal
SKIN: Warm, pink, dry. No rash. Sternotomy incision c/d/i
--- NOTE | 2025-03-24 15:22 | PTCARENOTE ---
Patient set up to shower, completed independently. Assisted to dress. PIV removed. Discharge instructions thoroughly reviewed w/patient and brother, all questions answered. ANKIT Moses updated to address patient will be convalescing at. Patient and all
belongings transported to waiting vehicle for d/c home w/brother.
== END 2025-03-24 15:48 | disposition home or self-care (01) | DRG 235 ==
LOC: CVICU 04:54
PROVIDERS: Anesthesiology; Physician Assistant Medical; ADMITTING PHYSICIAN Thoracic Surgery (Cardiothoracic Vascular Surgery); CONSULT PHYSICIAN Internal Medicine Cardiovascular Disease; CONSULT PHYSICIAN Internal Medicine Critical Care Medicine; FAMILY PHYSICIAN Internal Medicine
PROC: 06BP4ZZ Excision of Right Saphenous Vein, Percutaneous Endoscopic Approach (ICD-10-PCS; 2025-03-19)
PROC: 021209W Bypass Coronary Artery, Three Arteries from Aorta with Autologous Venous Tissue, Open Approach (ICD-10-PCS; 2025-03-19)
PROC: 02L70CK Occlusion of Left Atrial Appendage with Extraluminal Device, Open Approach (ICD-10-PCS; 2025-03-19)
PROC: 5A1221Z Performance of Cardiac Output, Continuous (ICD-10-PCS; 2025-03-19)
PROC: 02UX0JZ Supplement Thoracic Aorta, Ascending/Arch with Synthetic Substitute, Open Approach (ICD-10-PCS; 2025-03-19)
PROC: B24BZZ4 Ultrasonography of Heart with Aorta, Transesophageal (ICD-10-PCS; 2025-03-19)
PROC: 02100ZC Bypass Coronary Artery, One Artery from Thoracic Artery, Open Approach (ICD-10-PCS; 2025-03-19)
DX: I25.10 Atherosclerotic heart disease of native coronary artery without angina pectoris (principal); J95.1 Acute pulmonary insufficiency following thoracic surgery; D62 Acute posthemorrhagic anemia; N17.9 Acute kidney failure, unspecified; I30.8 Other forms of acute pericarditis; J98.11 Atelectasis; I71.21 Aneurysm of the ascending aorta, without rupture; R33.8 Other retention of urine; R00.1 Bradycardia, unspecified; E87.70 Fluid overload, unspecified; E86.1 Hypovolemia; Y83.2 Surgical operation with anastomosis, bypass or graft as the cause of abnormal reaction of the patient, or of later complication, without mention of misadventure at the time of the procedure; G25.81 Restless legs syndrome; K21.9 Gastro-esophageal reflux disease without esophagitis; E78.5 Hyperlipidemia, unspecified; I10 Essential (primary) hypertension; Z82.49 Family history of ischemic heart disease and other diseases of the circulatory system
CPT/HCPCS: 36415; 71045; 71046; 80048; 80053; 81003; 81015; 82248; 82330; 82565; 82805; 82810; 82947; 82962; 83036; 83735; 84132; 84302; 84520; 85014; 85018; 85025; 85027; 85049; 85610; 85730; 86850; 86900; 86901; 86920; 87070; 93005; 93880; 93923; 93930; 94002; C1713; C1768; J2916; P9045; P9047

== ENCOUNTER 2025-04-05 18:17 | Observation (INO) | payer OTHER, SELFPAY ==
[2025-04-05] VITALS (13 sets, daily range): BP systolic 100–156; BP diastolic 66–107; BMI 30.7; BMI 30.2
--- NOTE | 2025-04-05 11:53 | ED.GENMED ---
History of Present Illness
<RADHA Carrero - Last Filed: 04/05/25 18:30>
General
Chief Complaint: Breathing Problem
Source: patient
Exam Limitations: none
Time Seen by Provider: 04/05/25 11:40
Nursing documentation reviewed up to this point in time: agreed with
History of Present Illness
History of Present Illness:
69-year-old male status post CABG x4 [address] Robbie Ariza presents to the ER for evaluation of shortness of breath. Patient reports for the past 1 week he has felt winded even with conversation. He has to stop in midsentence. They
did take his venous graft from his right leg and he does report swelling was present after surgery however that has decreased. He does complain of some mild right calf discomfort. He denies any associated fever or chills. He has had cough and
reports 2 days ago with cough that he passed out. He attributes this to the pain he felt because of coughing related to recent surgery.
Patient is on aspirin and Plavix
Phy Exam
<RADHA Carrero - Last Filed: 04/05/25 18:30>
General Physical Exam
General Presentation: no apparent distress
General age: appears stated age
General Skin: warm and dry
General Habitus: normal
General Mental: alert
General Hydration: appears well hydrated
Cardiovascular Exam
Cardiovascular Exam: regular rate/rhythm, no murmur and normal peripheral pulses
Pulmonary Exam
Pulmonary Exam: lungs clear, no respiratory distress and other (Healing midsternal chest incision)
Neurological Exam
Neurological Exam: alert and oriented x3
Musculoskeletal Exam
Musculoskeletal Exam: other (Right leg with swelling strong pulse with mild calf tenderness)
Skin Exam
Skin Exam: normal color and warm/dry
Psychiatric Exam
Psychiatric Exam: normal mood/affect
Scores
<RADHA Carrero - Last Filed: 04/05/25 18:30>
Heart Failure Risk
Heart Failure Risk Score: Not Applicable
Course
<RADHA Carrero - Last Filed: 04/05/25 18:30>
Orders/Labs/Results
Orders:
Orders
04/05/25 11:38
CXR2 [CR Chest - 2 Views ] Urgent
Comment:
Reason For Exam: cough/SOB/s/p CABG
04/05/25 11:50
Type And Crossmatch [Type+Screen] Urgent
COVID-19 Antigen Urgent
Source: Nasal Swab
Complete Blood Count/With Diff Urgent
Comprehensive Metabolic Panel Urgent
NT-proBNP Urgent
Comment: ADD ON
Troponin I Urgent
Influenza A+B Rapid Molecular Urgent
JHONATAN Source: Nasal Swab
Specimen Description:
04/05/25 12:36
Electrocardiogram (*1) Stat
Reason for Study: Other
Other Reason for Exam: chest pain
EKG- Treatment ONCE
04/05/25 12:55
Add On- LAB Urgent
Tests Added?: cardiac BNP
CT Chest PE Study Urgent
Comment:
Reason For Exam: SOB
04/05/25 14:26
Venous Doppler Lwr Ext Rt [US Periph Venous LOWER Ext RT] Urgent
Comment:
Reason For Exam: swelling
04/05/25 16:00
Heparin 73390 Units/250 ml 25,000 units in 250 ml IV PER PROTOCOL
Weight to be used for heparin protocol in kilograms (kg):: 96.162
Protocol:: DVT/PE
PTT Goal Range to be used:: PTT 73 to 111 seconds
Order type:: Initial
INITIAL Infusion Dose (UNITS/KG/hr) & then follow protocol:: 18 units/kg/hr
Infusion Dose in UNITS/hr & then follow protocol (UNITS/hr):: 1,700
INFUSION RATE in mL/hr & then follow protocol (mL/hr):: 17
For DVT/PE algorithm, re-bolus for low PTT?: No
PTT less than or equal to 64 seconds:: No Re-bolus. Increase by 400 units/hr (+ 4mL/hr)
PTT 64.1 to 72.9 seconds:: No Re-bolus. Increase by 200 units/hr (+ 2mL/hr)
PTT 73 to 111 seconds:: Target Range. No change in rate.
PTT 111.1 to 130.9 seconds:: Decrease rate by 200 units/hr (- 2 mL/hr)
PTT 131 to 199.9 seconds:: HOLD for 1 hr. Then decrease by 300 units/hr (- 3mL/hr)
PTT greater than or equal to 200 seconds:: HOLD for 2 hrs & Notify Provider. Then decrease by 400 units/hr
(- 4mL/hr)
Lab follow-up:: Each change, PTT q6h until 2 consecutive are therapeutic. Then
PTT daily.
Nursing to Place Non Medication Order As Directed
Physician Order: PTT 6 hours after initial start of Heparin infusion
Above order entered?: Yes
04/05/25 16:07
PTT Urgent
Comment: Obtain baseline before beginning heparin infusion if not already collected
04/05/25 16:34
Acetaminophen [Tylenol] 650 mg PO Q6HPRN PRN mild pain,headache,temp >101F
04/05/25 16:42
ECG as needed As Directed
ECG as needed for:: Chest Pain
Other reason
Other reason for ECG as needed:: new suspicion of ACS
Comment: At onset of Chest Pain and then Q__H x 2. draw Troponin with each ECG
Additional Instructions:: at onset of chest pain or new suspicion of ACS:
-- ECG and Troponin urgent now
-- then ECG and Troponin with each ECG every 3 hours x total of 3,
including ED or other inpatient ECG/troponins.
Intake/ Output As Directed
Frequency: Per unit guidelines
Notify MD As Directed
Notify physician if: if patient has chest pain or new suspicion of ACS
Vital Signs As Directed
Frequency: Per unit guidelines
Weight As Directed
Frequency: Daily
04/05/25 16:43
Pulse Ox/cont/shift [RESP] Routine
Quantity: 1
04/05/25 16:45
Admit Patient As Directed
Co-Sign Provider:
Level of Care: Observation services
Assign to:: IVU
Physician / Group: CT surgery
Diagnosis: LE DVT, Pleural/Pericardial effusions.
Expected length of stay greater than two midnights?: No
ELOS- Estimated Length of Stay in days: 2
I certify the patient meets the requirements for IP care: No
Reason for Overnight Stay: Standard of Care
04/05/25 16:47
PRN Pain Medication Management As Directed
May give lesser potent ordered pain med per pt: Yes
preference::
Protocol:: Medication orders for pain may be administered in a
manner that supports deferring to patient preference
when the pt is:
- Requesting an ordered lesser potent pain medication.
Least to most potent pain medications are defined
as: acetaminophen < NSAID < tramadol < opioids
(morphine, oxycodone, hydromorphone).
- Requesting a lesser dose of the same medication IF
ORDERED.
- Requesting a less intrusive route of administration
if both routes are prescribed by the provider (PO <
IV).
04/05/25 16:48
Code Status As Directed
Resuscitation Status: Full Code
Activity As Directed
Activity Level: Out of Bed- Ad Sharonda
04/05/25 17:34
Furosemide [Lasix] 40 mg IV ONCE ONE
04/05/25 17:36
IV [INT (Intravenous Needle Therapy)] As Directed
04/05/25 18:00
Atorvastatin [Lipitor] 80 mg PO QPM
04/05/25 22:45
PTT Urgent
04/06/25 06:00
Echo 2D MMode Color/Doppler IN AM
Reason for Study: Pericardial effusion s/p CABG
Complete Blood Count/No Diff IN AM
Comprehensive Metabolic Panel IN AM
Magnesium IN AM
CR Chest Portable - 1 View IN AM
Comment:
Reason For Exam: pleural effusion
Reason Study Needs to be Portable: Unable to Transport
04/06/25 08:00
Aspirin Chewable [Low Strength Aspirin] 81 mg PO DAILY
Clopidogrel Bisulfate [Plavix] 75 mg PO DAILY
Ezetimibe [Zetia] 10 mg PO DAILY
Ferrous Sulfate [Feosol] 325 mg PO DAILY
Metoprolol Xl [Toprol Xl] 25 mg PO DAILY
Pantoprazole [Protonix] 20 mg PO DAILY
Tamsulosin [Flomax] 0.4 mg PO DAILY
aspirin 81 mg PO DAILY
04/06/25 14:00
Pramipexole [Mirapex, Generic] 0.5 mg PO DAILY@1400
Abnormal Lab Results
04/05/25
11:50
RBC 2.78 L 10^6/uL
(4.70-6.10)
Hgb 8.6 L g/dL
(13.0-18.0)
Hct 26.5 L %
(39.0-52.0)
MCV 95.3 H fL
(80.0-94.0)
MCHC 32.5 L g/dL
(33.0-37.0)
Plt Count 455 H 10^3/uL
(130-400)
Abs Immat Gran (auto) 0.1 H 10^3/uL
(0-0.05)
Absolute Lymphs (auto) 0.8 L 10^3/uL
(1.2-3.4)
Absolute Monos (auto) 0.8 H 10^3/uL
(0.1-0.6)
Immature Gran % 0.8 H %
(0-0.5)
Lymphocytes % 12.1 L %
(20.5-51.1)
Monocytes % 12.1 H %
(1.7-9.3)
Eosinophils % 8.3 H %
(0-6)
ALT 66 H U/L
(0-50)
Troponin I 0.041 H* ng/ml
Total Protein 6.0 L g/dl
(6.3-8.2)
04/05/25 11:50
04/05/25 11:50
Vital Signs
Initial and Last Documented VS:
Initial Vital Signs
Temp Pulse Resp BP Pulse Ox
97.6 F 89 18 145/85 97
04/05/25 11:15 04/05/25 11:15 04/05/25 11:15 04/05/25 11:15 04/05/25 11:15
Last Documented Vital Signs
Temp Pulse Resp BP Pulse Ox
97.6 F 92 16 144/93 98
04/05/25 11:15 04/05/25 18:06 04/05/25 17:30 04/05/25 18:06 04/05/25 17:30
Parts Inspector consulted with Physician
Parts Inspector consulted with physician?: Yes
Name of Physician Consulted: Ekaterina
<Jose Tobar, DO - Last Filed: 04/05/25 13:07>
Orders/Labs/Results
Orders:
Orders
04/05/25 11:38
CXR2 [CR Chest - 2 Views ] Urgent
Comment:
Reason For Exam: cough/SOB/s/p CABG
04/05/25 11:50
Type And Crossmatch [Type+Screen] Urgent
COVID-19 Antigen Urgent
Source: Nasal Swab
Complete Blood Count/With Diff Urgent
Comprehensive Metabolic Panel Urgent
NT-proBNP Urgent
Comment: ADD ON
Troponin I Urgent
Influenza A+B Rapid Molecular Urgent
JHONATAN Source: Nasal Swab
Specimen Description:
04/05/25 12:36
Electrocardiogram (*1) Stat
Reason for Study: Other
Other Reason for Exam: chest pain
EKG- Treatment ONCE
04/05/25 12:55
Add On- LAB Urgent
Tests Added?: cardiac BNP
CT Chest PE Study Urgent
Comment:
Reason For Exam: SOB
04/05/25 14:26
Venous Doppler Lwr Ext Rt [US Periph Venous LOWER Ext RT] Urgent
Comment:
Reason For Exam: swelling
04/05/25 16:00
Heparin [id number] Units/250 ml 25,000 units in 250 ml IV PER PROTOCOL
Weight to be used for heparin protocol in kilograms (kg):: 96.162
Protocol:: DVT/PE
PTT Goal Range to be used:: PTT 73 to 111 seconds
Order type:: Initial
INITIAL Infusion Dose (UNITS/KG/hr) & then follow protocol:: 18 units/kg/hr
Infusion Dose in UNITS/hr & then follow protocol (UNITS/hr):: 1,700
INFUSION RATE in mL/hr & then follow protocol (mL/hr):: 17
For DVT/PE algorithm, re-bolus for low PTT?: No
PTT less than or equal to 64 seconds:: No Re-bolus. Increase by 400 units/hr (+ 4mL/hr)
PTT 64.1 to 72.9 seconds:: No Re-bolus. Increase by 200 units/hr (+ 2mL/hr)
PTT 73 to 111 seconds:: Target Range. No change in rate.
PTT 111.1 to 130.9 seconds:: Decrease rate by 200 units/hr (- 2 mL/hr)
PTT 131 to 199.9 seconds:: HOLD for 1 hr. Then decrease by 300 units/hr (- 3mL/hr)
PTT greater than or equal to 200 seconds:: HOLD for 2 hrs & Notify Provider. Then decrease by 400 units/hr
(- 4mL/hr)
Lab follow-up:: Each change, PTT q6h until 2 consecutive are therapeutic. Then
PTT daily.
Nursing to Place Non Medication Order As Directed
Physician Order: PTT 6 hours after initial start of Heparin infusion
Above order entered?: Yes
04/05/25 16:07
PTT Urgent
Comment: Obtain baseline before beginning heparin infusion if not already collected
04/05/25 16:34
Acetaminophen [Tylenol] 650 mg PO Q6HPRN PRN mild pain,headache,temp >101F
04/05/25 16:42
ECG as needed As Directed
ECG as needed for:: Chest Pain
Other reason
Other reason for ECG as needed:: new suspicion of ACS
Comment: At onset of Chest Pain and then Q__H x 2. draw Troponin with each ECG
Additional Instructions:: at onset of chest pain or new suspicion of ACS:
-- ECG and Troponin urgent now
-- then ECG and Troponin with each ECG every 3 hours x total of 3,
including ED or other inpatient ECG/troponins.
Intake/ Output As Directed
Frequency: Per unit guidelines
Notify MD As Directed
Notify physician if: if patient has chest pain or new suspicion of ACS
Vital Signs As Directed
Frequency: Per unit guidelines
Weight As Directed
Frequency: Daily
04/05/25 16:43
Pulse Ox/cont/shift [RESP] Routine
Quantity: 1
04/05/25 16:45
Admit Patient As Directed
Co-Sign Provider:
Level of Care: Observation services
Assign to:: IVU
Physician / Group: CT surgery
Diagnosis: LE DVT, Pleural/Pericardial effusions.
Expected length of stay greater than two midnights?: No
ELOS- Estimated Length of Stay in days: 2
I certify the patient meets the requirements for IP care: No
Reason for Overnight Stay: Standard of Care
04/05/25 16:47
PRN Pain Medication Management As Directed
May give lesser potent ordered pain med per pt: Yes
preference::
Protocol:: Medication orders for pain may be administered in a
manner that supports deferring to patient preference
when the pt is:
- Requesting an ordered lesser potent pain medication.
Least to most potent pain medications are defined
as: acetaminophen < NSAID < tramadol < opioids
(morphine, oxycodone, hydromorphone).
- Requesting a lesser dose of the same medication IF
ORDERED.
- Requesting a less intrusive route of administration
if both routes are prescribed by the provider (PO <
IV).
04/05/25 16:48
Code Status As Directed
Resuscitation Status: Full Code
Activity As Directed
Activity Level: Out of Bed- Ad Sharonda
04/05/25 17:34
Furosemide [Lasix] 40 mg IV ONCE ONE
04/05/25 17:36
IV [INT (Intravenous Needle Therapy)] As Directed
04/05/25 18:00
Atorvastatin [Lipitor] 80 mg PO QPM
04/05/25 22:45
PTT Urgent
04/06/25 06:00
Echo 2D MMode Color/Doppler IN AM
Reason for Study: Pericardial effusion s/p CABG
Complete Blood Count/No Diff IN AM
Comprehensive Metabolic Panel IN AM
Magnesium IN AM
CR Chest Portable - 1 View IN AM
Comment:
Reason For Exam: pleural effusion
Reason Study Needs to be Portable: Unable to Transport
04/06/25 08:00
Aspirin Chewable [Low Strength Aspirin] 81 mg PO DAILY
Clopidogrel Bisulfate [Plavix] 75 mg PO DAILY
Ezetimibe [Zetia] 10 mg PO DAILY
Ferrous Sulfate [Feosol] 325 mg PO DAILY
Metoprolol Xl [Toprol Xl] 25 mg PO DAILY
Pantoprazole [Protonix] 20 mg PO DAILY
Tamsulosin [Flomax] 0.4 mg PO DAILY
aspirin 81 mg PO DAILY
04/06/25 14:00
Pramipexole [Mirapex, Generic] 0.5 mg PO DAILY@1400
Abnormal Lab Results
04/05/25
11:50
RBC 2.78 L 10^6/uL
(4.70-6.10)
Hgb 8.6 L g/dL
(13.0-18.0)
Hct 26.5 L %
(39.0-52.0)
MCV 95.3 H fL
(80.0-94.0)
MCHC 32.5 L g/dL
(33.0-37.0)
Plt Count 455 H 10^3/uL
(130-400)
Abs Immat Gran (auto) 0.1 H 10^3/uL
(0-0.05)
Absolute Lymphs (auto) 0.8 L 10^3/uL
(1.2-3.4)
Absolute Monos (auto) 0.8 H 10^3/uL
(0.1-0.6)
Immature Gran % 0.8 H %
(0-0.5)
Lymphocytes % 12.1 L %
(20.5-51.1)
Monocytes % 12.1 H %
(1.7-9.3)
Eosinophils % 8.3 H %
(0-6)
ALT 66 H U/L
(0-50)
Troponin I 0.041 H* ng/ml
Total Protein 6.0 L g/dl
(6.3-8.2)
04/05/25 11:50
04/05/25 11:50
Vital Signs
Initial and Last Documented VS:
Initial Vital Signs
Temp Pulse Resp BP Pulse Ox
97.6 F 89 18 145/85 97
04/05/25 11:15 04/05/25 11:15 04/05/25 11:15 04/05/25 11:15 04/05/25 11:15
Last Documented Vital Signs
Temp Pulse Resp BP Pulse Ox
97.6 F 92 16 144/93 98
04/05/25 11:15 04/05/25 18:06 04/05/25 17:30 04/05/25 18:06 04/05/25 17:30
<RADHA Carrero - Last Filed: 04/05/25 18:30>
MDM/Problems Addressed
Differential Diagnosis Includes:
Not limited to CHF PE DVT pleural effusion
MDM/Problems Addressed:
As documented patient is status post bypass March 19 presents with increasing shortness of breath for the past 1 week. He has conversational dyspnea. He does have a previous pleural effusion after surgery and chest x-ray does confirm a left
pleural effusion however CAT scan today shows large pericardial effusion. Patient also has a moderate-sized left pleural effusion. pt has Swelling to DVT which is site for graft and US is positive for acute nonocclusive DVT in the right peroneal
and soleal veins.
Case discussed with CT surgery on-call Dr. Dumont. They will see patient and admit to IVU. He does recommend heparin drip no bolus which I ordered. I did inform patient and brother of his findings and plan for admission and heparin
Chronic conditions affecting care:
Recent bypass surgery
<RADHA Carrero - Last Filed: 04/05/25 18:30>
*Radiology
Radiology exam reviewed: radiology read reviewed
*Pulse Oximetry
SaO2: 99
Oxygen Mode of Delivery: Room air
Patient hypoxic: no
*EKG
Interpreted by ED Provider?: Yes
Interpretation: abnormal
Comparison EKG: changes noted (ST no longer elevated )
Heart Rate: 83
Rate: normal
Rhythm: sinus
Ischemia: non-specific ST changes
*Critical Care Note
Total Time (30-74mins, 75-104mins- exclusive of procedures): Not Applicable
Data Reviewed
Review of Other/Old Records Reveals: Labs, Radiology Studies and Discharge Summary
Source: patient and family
<RADHA Carrero - Last Filed: 04/05/25 18:30>
Patient Management
Discussion with other providers: Certified Histologic Technician (DR Dumont cardiovascular surgery)
ED Attending Note
<RADHA Carrero - Last Filed: 04/05/25 18:30>
-
Portions of this chart may have been created with voice recognition software.� Occasional wrong word or��sound alike� substitutions may have occurred due to the inherent limitations of voice recognition software.
<Jose Tobar DO - Last Filed: 04/05/25 13:07>
ED Attending Note
Patient seen and examined by attending physician: Yes
I performed the substantive portion of visit, reviewed & personally made and approve the management plan that is documented in note by myself or TANA.: Yes
ED Attending Note:
Seen with GLOBAL PROCESS OWNER examined independently 71-year-old male status post bypass surgery
Shortness of breath cough, swollen right greater than left leg
X-ray noted
Will check proBNP CT to rule out PE
Discharge Plan
Departure
Patient Disposition: Admit
Date of Disposition: 04/05/25
Time of Disposition: 16:03
Admit to: IVU
Admit to doctor: DR Dumont
Presentation/result/management discussed w/ accepting MD/DO: DR DUMONT
Patient with high blood pressure during this ER visit?: Yes
Condition: Fair
Covid-19: Not Applicable
Discharge Problem:
Acute pericardial effusion, Acute dyspnea, DVT (deep venous thrombosis), Anemia, Pleural effusion
Interventions
Interventions:
*Risk Screen - Suicide Last Done: 04/05/25 11:15
*General Assessment Last Done: 04/05/25 11:35
*Neglect/Abuse Screening Last Done: 04/05/25 11:35
*ED- Fall Risk Assessment Last Done: 04/05/25 11:35
*ED COVID-19 Vaccine History Last Done: 04/05/25 11:35
ED- Cardiac Assessment Last Done: 04/05/25 11:36
ED- Pulmonary Assessment Last Done: 04/05/25 11:36
[2025-04-05 12:12] LABS: Hematocrit 26.5 % (39.0-52.0); Hemoglobin 8.6 g/dL (13.0-18.0); Mean Corp Hgb Conc. 32.5 g/dL (33.0-37.0); Mean Corpuscular Volume 95.3 fL (80.0-94.0); Nucleated Red Blood Cells % 0 % (-); Platelet Count 455 10^3/uL (130-400); Red Cell Dist. Width 14.3 % (11.5-14.5)
[2025-04-05 12:17] LABS: ALT (SGPT) 66 U/L (0-50); AST (SGOT) 38 U/L (17-59); Albumin 3.5 g/dl (3.5-5.0); Alkaline Phosphatase 70 U/L (38-126); Blood Urea Nitrogen 16 mg/dl (9-20); Calcium 9.0 mg/dl (8.4-10.2); Carbon Dioxide 29 mmol/L (22-30); Chloride 104 mmol/L (98-107); Estimated Creatinine Clearance 119 ml/min; Glucose 87 mg/dl (70-99); Potassium 4.1 mmol/L (3.5-5.1); Sodium 137 mmol/L (135-145); Total Protein 6.0 g/dl (6.3-8.2); eGFR > 60.00
[2025-04-05 12:23] LABS: COVID-19 Antigen Negative (Negative)
[2025-04-05 12:41] LABS: Troponin I 0.041 ng/ml
[2025-04-05 16:30] LABS: APTT 28.6 Sec (23.4-35.0)
[2025-04-05] MEDS: HEPARIN 25000 UNITS/250 ML IV (16:43)
--- NOTE | 2025-04-05 17:04 | HPS.HSE ---
Family Physician
-
Family Physician: Sebastian Mederos
Chief Complaint
-
SOB
History of Present Illness
69-year-old male status post CABG x4 [address] Robbie Ariza presents to the ER for evaluation of shortness of breath. Patient reports for the past 1 week he has felt winded even with conversation. He has to stop in midsentence. They
did take his venous graft from his right leg and he does report swelling was present after surgery however that has decreased. He does complain of some mild right calf discomfort. He denies any associated fever or chills. He has had cough and
reports 2 days ago with cough that he passed out. He attributes this to the pain he felt because of coughing related to recent surgery. He had a CXR, CT chest PE protocol, and LE US in ED. These studies revealed a small to moderate pleural
effusion, pericardial effusion, and RLE DVT of Peroneal and Soleal veins.
Medical History
Past Medical History
Past Medical History: Reports CAD (s/p CABG), GERD and Hypercholesterolemia
Additional Past Medical History:
Urinary retention
restless leg syndrome
Past Surgical History: Reports Other (CABG)
Additional Past Surgical History:
CABG/asc. aortic wrap 03/19/25
Social History
Tobacco: Non-smoker
Alcohol: Occasional
Drug: None
Family History
Family History: CAD
Allergies / Home Medications
Allergies reflects when Allergies were last updated in [facility].
Home Medications with original date entered in [facility]
Allergy/Medication List:
codeine
Review of Systems
-
History Source: Patient
Constitutional: Reports Fatigue; Denies Fever or Weight Gain
EENT: Reports No Symptoms
Respiratory: Reports Cough and Trouble Breathing
Cardiac: Reports Chest Pain (with coughing) and Syncope; Denies Palpitations
Abdomen/GI: Reports Other (GERD)
: Denies Difficulty Voiding
Musculoskeletal: Reports Edema (RLE)
Skin: Reports No Symptoms
Neurological: Reports No Symptoms
Endocrine: Reports No Symptoms
Hematologic/Lymphatic: Reports No Symptoms
Psych: Reports Calm
Physical Exam
Vital Signs
Vital Signs
Temp Pulse Resp BP Pulse Ox
97.6 F 90 15 124/73 96
04/05/25 11:15 04/05/25 16:04 04/05/25 16:04 04/05/25 14:00 04/05/25 16:04
Physical Exam
General: Well Developed, Well Nourished and No Apparent Distress
HEENT: NormoCephalic, Atraumatic and PERRLA
Respiratory: Clear and Decreased Breath Sounds (at bases)
Cardiac: Regular Rhythm and Peripheral Edema (+1 edema RLE, trace edema LLE); No Murmur
GI: Non Tender, Non Distended and Normal Bowel Sounds
Rectal: Deferred by Provider
Genito-urinary: Deferred by me
Musculoskeletal: Edema, Left Lower Extremity (+1) and Edema, Right Lower Extremity (trace)
Skin: Warm, Dry and Other (Incisions C/D/I)
Neuro: AO x 3
Laboratory Results
-
04/05/25 11:50
04/05/25 11:50
Laboratory Results
APTT 28.6 Sec (23.4-35.0) 04/05/25 16:07
Total Bilirubin 0.4 mg/dl (0.2-1.3) 04/05/25 11:50
AST 38 U/L (17-59) 04/05/25 11:50
ALT 66 U/L (0-50) H 04/05/25 11:50
Alkaline Phosphatase 70 U/L (38-126) 04/05/25 11:50
Troponin I 0.041 ng/ml H* 04/05/25 11:50
Data Reviewed
-
Diagnostic Radiology: Image Personally Visualized and interpreted and Report Reviewed by me
CT Scan: Image Personally Visualized and interpreted and Report Reviewed by me
Ultrasound: Report Reviewed by me
Lab Data: Labs Reviewed by me
Old Records: Reviewed
Impression/Plan
-
IMPRESSION: s/p Ascending aortic wrap w/ hemashield graft, CABG x 4 (TEMO to LAD, GSV to D1, GSV to OM1, GSV to distal PDA), ELAA (45mm AtriClip) by Dr. Ariza on 03/19/25 now presenting with RLE DVT and small to moderate left pleural effusion.
Pericardial effusion on CT, no PE noted.
PLAN: Admit to IVU under CT surgery, observation status. Will hold Plavix, start heparin drip. Diuresis with IV Lasix. Obtain echo in AM. Consider thoracentesis, pericardiocentesis.
[2025-04-05] MEDS: LIPITOR 80 MG PO (18:06)
[2025-04-05] MEDS: LASIX 40 MG IV (18:06)
[2025-04-05] MEDS: TYLENOL 650 MG PO (21:51)
[2025-04-05] MEDS: MIRAPEX, GENERIC 0.5 MG PO (21:51)
[2025-04-05 23:31] LABS: APTT 52.3 Sec (23.4-35.0)
[2025-04-06] VITALS (8 sets, daily range): BP systolic 80–115; BP diastolic 66–76; BMI 30.1
--- NOTE | 2025-04-06 00:34 | PTCARENOTE ---
Pt rec'd from ED at 2130 on 04/05/25 awake,alert with Freq dry cough noted. Lungs clear r/a sat 93%. Sinus on telemetry
Heparin gtt originally started at 1700 units /hr increased to 2100 units after first ptt resulted at 52.3. RLE slightly more swollen than left with minimal calf pain noted on right.
--- NOTE | 2025-04-06 00:42 | W.PN.CT ---
Today's Communication / Plan
-
-continue heparin gtt, continue ASA, holding Plavix
-continue diuretic
-obtain echo today
-Possible IR consult for thoracentesis
-OOB/IS
Assessment / Plan
-
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 Robbie Ariza 03/19/25 found to have an acute DVT, pericardial effusion, and L pleural effusion
-Moderate size L pleural effusion
-Large pericardial effusion
-RLE DVT of Peroneal and Soleal veins
Postop acute blood loss anemia
Postop urinary retention
Postoperative EDUARD, peak creatinine 1.2, resolved
Hypertension
Hyperlipidemia
Family history of premature coronary artery disease
GERD
Restless leg syndrome
Subjective
-
Date of Service: April 06, 2025
Objective Data
-
APTT 52.3 Sec (23.4-35.0) H 04/05/25 23:07
Vital Signs
Vital Signs
Temp Pulse Resp BP Pulse Ox
98.9 F 101 18 100/69 97
04/05/25 22:59 04/05/25 23:00 04/05/25 22:59 04/05/25 22:59 04/05/25 22:59
CT Intake/Output/Weight
04/05/25 04/05/25 04/06/25
06:59 18:59 06:59
Output Total 1100 / 1100
Balance -1100 / -1100
SaO2: 97
Physical Exam
-
General: Awake and Oriented
Cardiovascular: Regular rate & rhythm, No Murmurs and No Rub
Respiratory: Clear and Equal
Extremities: Edema +1
Data Reviewed
-
Lab Results: Results Reviewed
Medications: Active Meds Reviewed
Chest X-Ray: Report Reviewed
ECG: Report Reviewed
[2025-04-06 05:40] LABS: Hematocrit 25.8 % (39.0-52.0); Hemoglobin 8.5 g/dL (13.0-18.0); Mean Corp Hgb Conc. 32.9 g/dL (33.0-37.0); Mean Corpuscular Volume 93.5 fL (80.0-94.0); Platelet Count 447 10^3/uL (130-400); Red Cell Dist. Width 14.3 % (11.5-14.5)
[2025-04-06] MEDS: HEPARIN 25000 UNITS/250 ML IV ×2 (05:40→18:49)
[2025-04-06 05:57] LABS: APTT 129.8 Sec (23.4-35.0)
[2025-04-06 06:18] LABS: ALT (SGPT) 64 U/L (0-50); AST (SGOT) 36 U/L (17-59); Albumin 3.4 g/dl (3.5-5.0); Alkaline Phosphatase 71 U/L (38-126); Blood Urea Nitrogen 17 mg/dl (9-20); Calcium 9.1 mg/dl (8.4-10.2); Carbon Dioxide 28 mmol/L (22-30); Chloride 104 mmol/L (98-107); Estimated Creatinine Clearance 115 ml/min; Glucose 101 mg/dl (70-99); Magnesium 2.0 mg/dl (1.6-2.3); Potassium 4.0 mmol/L (3.5-5.1); Sodium 138 mmol/L (135-145); Total Protein 5.9 g/dl (6.3-8.2); eGFR > 60.00
[2025-04-06] MEDS: TYLENOL 650 MG PO ×2 (07:51→22:20)
--- NOTE | 2025-04-06 07:55 | PTCARENOTE ---
Assumed care of pt form prev nsg shift; Pt AAox3 w/no c/o CP or SOB. Pt's VSS w/HR in the 80's & BP 105/76. Pt is SR on telemetry monitoring. 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 SpO2 stable at 96-98% on RA. Discussed plan of care for the day, incl that pt will
be going to IR this AM. Pt w/call farah withn reach & plan of care ongoing.
--- NOTE | 2025-04-06 08:25 | PTCARENOTE ---
Pt sent to IR on a stretcher w/IV Heparin infusing as ordered through patent IV line.
--- NOTE | 2025-04-06 09:40 | PTCARENOTE ---
Rec'd report from Tara in IR; 900 mLs of bloody fluid drained. CXR done. Rec'd pt back post drainage of pleural fluid. Bandaid to L mid back-C/D/I no signs of bleeding. Pt w/clear lungs & denies pain at this time.
[2025-04-06] MEDS: FLOMAX 0.4 MG PO (09:49)
[2025-04-06] MEDS: LASIX 40 MG IV (09:49)
[2025-04-06] MEDS: ZETIA 10 MG PO (09:49)
[2025-04-06] MEDS: PROTONIX 20 MG PO (09:49)
[2025-04-06] MEDS: FEOSOL 325 MG PO (09:49)
[2025-04-06] MEDS: LOW STRENGTH ASPIRIN 81 MG PO (09:49)
[2025-04-06] MEDS: TOPROL XL 25 MG PO (09:49)
[2025-04-06 12:53] LABS: APTT 77.3 Sec (23.4-35.0)
[2025-04-06] MEDS: MIRAPEX, GENERIC 0.5 MG PO (15:08)
--- NOTE | 2025-04-06 15:18 | CM ---
spoke to pt martin, he is prev indep, lives alone in a 2 story home with 6 steps to enter. she denies any dc planning needs at this time. plan is for dc to home when medically stable.
[2025-04-06] MEDS: LIPITOR 80 MG PO (18:24)
[2025-04-06 18:50] LABS: APTT 96.0 Sec (23.4-35.0)
--- NOTE | 2025-04-06 23:27 | PTCARENOTE ---
Assumed care of patient at change of shift. Pt AAOx3, VSS, and sating 97-98% RA. Tele monitor shows NSR, HR in the 70-90's. Ambulates self in room, denies any dizziness. Has an occasional cough, uses pillow as a splint. Sternal precautions
maintained. IV Heparin gtt infusing at 1900 units/hr. Pt aware of POC, call farah in reach.
[2025-04-07 02:52] VITALS: BP 129/76
[2025-04-07 02:54] VITALS: BMI 29.7
[2025-04-07 03:11] LABS: Hematocrit 27.9 % (39.0-52.0); Hemoglobin 9.1 g/dL (13.0-18.0); Mean Corp Hgb Conc. 32.6 g/dL (33.0-37.0); Mean Corpuscular Volume 91.8 fL (80.0-94.0); Platelet Count 452 10^3/uL (130-400); Red Cell Dist. Width 14.2 % (11.5-14.5)
[2025-04-07 03:27] LABS: APTT 114.1 Sec (23.4-35.0)
[2025-04-07 03:36] LABS: Blood Urea Nitrogen 19 mg/dl (9-20); Calcium 9.2 mg/dl (8.4-10.2); Carbon Dioxide 28 mmol/L (22-30); Chloride 102 mmol/L (98-107); Estimated Creatinine Clearance 102 ml/min; Glucose 105 mg/dl (70-99); Magnesium 2.0 mg/dl (1.6-2.3); Potassium 4.0 mmol/L (3.5-5.1); Sodium 136 mmol/L (135-145); eGFR > 60.00
[2025-04-07 07:25] VITALS: BP 117/72
--- NOTE | 2025-04-07 07:50 | W.PN.CT ---
Addendum entered and electronically signed by Nely Grimm PA-C 04/07/25 11:03:
Eliquis 10mg BID x 7 days--then 5mg BID to start this am. D/c heparin gtt after first dose of eliquis. d/c plavix.
plan for outpatient echo in 1 week with his primary cardiology office to monitor pericardial effusion
Original Note:
Today's Communication / Plan
-
Plan:
-Cont. current managment
-Echo yesterday showed, Mild TR, Small pericardial effusion, dilated asc. aorta 4.1 cm, EF 55-60%
-Will transition off heparin gtt back to Eliquis
-Cont. ASA, Plavix is on hold
-Had left thoracentesis, with evacuation of 900 mL of serosanguineous fluid
-Cardiology input
-Will d/c home
Assessment / Plan
-
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 Robbie Ariza 03/19/25 found to have an acute DVT, pericardial effusion, and L pleural effusion
-Moderate size L pleural effusion
-Large pericardial effusion
-RLE DVT of Peroneal and Soleal veins
Postop acute blood loss anemia
Postop urinary retention
Postoperative EDUARD, peak creatinine 1.2, resolved
Hypertension
Hyperlipidemia
Family history of premature coronary artery disease
GERD
Restless leg syndrome
Discussed patient care with: Cardiology, Nursing, Respiratory Therapy, Pharmacy and Care Team
Subjective
-
Date of Service: April 07, 2025
No issues overnight. Denies CP/SOB
Objective Data
-
Lab Results
04/07/25 03:01
04/07/25 03:01
APTT 114.1 Sec (23.4-35.0) H 04/07/25 03:01
Vital Signs
Vital Signs
Temp Pulse Resp BP Pulse Ox
98.6 F 84 16 129/76 95
04/07/25 07:25 04/07/25 07:25 04/07/25 07:25 04/07/25 02:52 04/07/25 07:25
CT Intake/Output/Weight
04/06/25 04/07/25 04/07/25
18:59 06:59 18:59
Intake Total 360 / 820 460 / 820
Balance 360 / 820 460 / 820
SaO2: 95 (RA)
Physical Exam
-
General: Awake, Oriented and AOx3
Cardiovascular: Regular rate & rhythm
Respiratory: Clear
Incision: Clean, Dry, Intact and Dressing Intact
Extremities: No Edema
Data Reviewed
-
Lab Results: Results Reviewed
Medications: Active Meds Reviewed
Chest X-Ray: Report Reviewed and Image Reviewed
ECG: Report Reviewed and Image Reviewed
--- NOTE | 2025-04-07 08:00 | PTCARENOTE ---
Assumed care of pt form prev nsg shift; Pt AAox3 w/no c/o CP or SOB. Pt's VSS w/HR in the 80's & BP 117/72. Pt is SR on telemetry monitoring. 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 SpO2 stable at 96-98% on RA. Pt w/IV
Heparin drip infusing through patent IV line as ordered. Discussed plan of care for the day, incl poss D/C. Pt w/call farah within reach & plan of care ongoing.
[2025-04-07] MEDS: HEPARIN 25000 UNITS/250 ML IV (09:02)
[2025-04-07] MEDS: LOW STRENGTH ASPIRIN 81 MG PO (09:06)
[2025-04-07] MEDS: TOPROL XL 25 MG PO (09:06)
[2025-04-07] MEDS: LASIX 40 MG IV (09:06)
[2025-04-07] MEDS: FLOMAX 0.4 MG PO (09:06)
[2025-04-07] MEDS: FEOSOL 325 MG PO (09:06)
[2025-04-07] MEDS: ZETIA 10 MG PO (09:06)
[2025-04-07] MEDS: TYLENOL 650 MG PO (09:14)
[2025-04-07] MEDS: PROTONIX 20 MG PO (09:14)
[2025-04-07] MEDS: ELIQUIS 10 MG PO (11:59)
[2025-04-07 12:04] VITALS: BP 102/74
--- NOTE | 2025-04-07 12:14 | CM ---
priced meds: called pts perscrip plan- silver scripts- tachoquis first month is $574- of that $563 is his remaining deductible. then he will pay $116/month, he pays 24% cost of tier 3 meds
--- NOTE | 2025-04-07 14:02 | W.DCSUMMARY ---
Discharge Summary
Discharge Data
Date of Admission: 04/05/25
Date of Discharge: 04/07/25
-
Pending Results: No
Hospital Course
Primary care physician: Sebastian Mederos MD
Outpatient maritime pilot: Adrien Foley MD
Inpatient consultants: Interventional Radiology
Procedures:
1. Left thoracentesis in IR with evacuation of 900 mL serosanguineous fluid on 04/06/25
Primary Diagnosis:
1. Moderate-Size Left Pleural Effusion
Secondary Diagnoses:
1. Large pericardial effusion
2. Provoked, RLE DVT of Peroneal and Soleal veins
3. CAD s/p CABG x 4 (KU-LAD, SVG-D1, SVG-OM1, SVG-PDA), Ascending Aortic Wrap with hemashield graft, eLAA (#[address] clip) with Dr. Robbie Ariza on 03/19/25
4. HTN
5. HLD
6. Family Hx of pre-mature CAD
7. GERD
8. RLS
9. Postoperative acute blood-loss anemia
10. Postopreative EDUARD, peak Cr 1.2, resolved
11. Postoperative urinary retention
HPI: Mr Emanuel Carpenter is a 69-year-old male with a PMHx of CAD s/p CABG x [address] Ariza on 03/19/25 who presented to [facility] ED with complaints of shortness of breath and RLE edema. Patient reported progressive SOB over the last week with
conversational dyspnea. He further reported RLE swelling which had slightly decreased following surgery. He obtained a CXR, CT chest PE protocol, and LE US in which he ruled-in for moderate-sized left pleural effusion, pericardial effusion, and RLE
DVT.
Hospital course: Patient presented to [facility] ED with complaints of progressive shortness of breath and right lower extremity edema. He was found to have a moderate-size left pleural effusion, large pericardial effusion, and right lower extremity DVT
of peroneal and soleal veins. He was initiated on a heparin drip for DVT and diuresed for pleural effusion. Interventional radiology was consulted in which he underwent an ultrasound-guided left thoracentesis in which 900 mL of serosanguineous
fluid was evacuated on 04/06/2025. He obtained a TTE following his thoracentesis to evaluate his pericardial effusion. Echo showed EF 55 to 60%, small pericardial effusion, dilated ascending aorta measuring 4.1 cm and mild TR. On 04/07/2025, he was
transitioned off heparin drip and started OAC with Eliquis 10 mg twice daily for 7 days then Eliquis 5 mg twice daily for 6 months for treatment of DVT. He was discharged home with plan to obtain a TTE at [facility] in 1 week. He will
follow-up with his maritime pilot in 1 to 2 weeks following his TTE. He will see Dr. Ariza in 2 weeks for routine postoperative visit. He was instructed to follow-up with his primary care provider in 1 to 2 weeks for further management of his DVT
Home medication changes:
- see list provided below.
Discharge Plan
-
Patient Disposition: Home (Routine Discharge)
Discharge Diagnosis/Procedures: Deep Vein Thrombosis, Left Pleural Effusion, and Pericardial Effusion s/p Left thoracentesis with IR on 04/06/25
Condition: Good
Diet: Low Cholesterol and 2 Gram Sodium
Activity: As tolerated and No strenuous activity
Driving Restrictions: Not until seen by your Dr
Bathing Restrictions: OK to Shower
Others Tests: Please obtain Echocardiogram on 04/16/25 at 9:30 am at [facility], [address] [place] [address].
Specialty Instructions: Weigh Daily- Call MD for wt gain/loss 3 lbs overnight/5 lbs in 1 week
Referrals:
Adrien Foley MD [Active, Internal Medicine] - in two weeks
Referral Note: Call to schedule an appointment within 2-weeks to review echocardiogram.
Sebastian Mederos MD [Family Provider, Internal Medicine]
Referral Note: Call to make appointment in 1-2 to follow-up from hospitalization.
Robbie Ariza MD [Active, Cardiac Surgery] - 04/21/25 1:30 pm
Referral Note: Post-operative follow-up appointment.
Prescriptions:
New
Eliquis 5 mg Tablet
10 mg PO BID Qty: 90 1RF
Rx Instructions:
Take 10 mg twice a day. On 04/15/25,take 5 mg twice a day for 6-months.
Continued
metoprolol succinate 25 mg Tablet Extended Release 24 Hr
25 mg PO DAILY
aspirin 81 mg Capsule
81 mg PO DAILY Qty: 0 0RF
acetaminophen 325 mg Tablet
650 mg PO Q6HPRN PRN (Reason: mild pain,headache,temp >101F ) Qty: 0 0RF
tamsulosin 0.4 mg Capsule
0.4 mg PO DAILY Qty: 30 1RF
ferrous sulfate [FeroSul] 325 mg (65 mg iron) Tablet
325 mg PO DAILY Qty: 30 1RF
pramipexole 0.5 mg Tablet
0.5 mg PO DAILY@1400 Qty: 0 0RF
atorvastatin 80 mg Tablet
80 mg PO QPM Qty: 0 0RF
ezetimibe 10 mg Tablet
10 mg PO DAILY Qty: 0 0RF
pantoprazole 20 mg tablet,delayed release (DR/EC)
20 mg PO DAILY Qty: 0 0RF
Discontinued
clopidogrel 75 mg Tablet
75 mg PO DAILY Qty: 30 1RF
Discharge Orders:
Discharge Patient (As Directed); Ordered 04/07/25
Ordered By: Akua Fountain
Care Plan Goals
Care Plan Goals:
Problem: Readiness for enhanced knowledge related to diagnosis and treatment plan
Goal: Understand your diagnosis and treatment plan needs, including medications if applicable.
Instructions: Know your diagnosis, underlying causes and treatment plan options, including medications if applicable. Consult with your health care team to learn about your diagnosis and treatment plan, including medications if applicable.
Discharge Date and Time
Print Language: THAI
[2025-04-07 14:39] VITALS: BP 96/63
[2025-04-07] MEDS: MIRAPEX, GENERIC 0.5 MG PO (14:39)
--- NOTE | 2025-04-07 16:27 | PTCARENOTE ---
Pt's IV line D/C'd & telemetry pack removed. Pt escorted out by staff w/his brother driving him home.
== END 2025-04-07 16:35 | disposition home or self-care (01) ==
LOC: IVU 18:17
PROVIDERS: Emergency Medicine; Nurse Practitioner; Physician Assistant; ADMITTING PHYSICIAN Thoracic Surgery (Cardiothoracic Vascular Surgery); ATTENDING PHYSICIAN Thoracic Surgery (Cardiothoracic Vascular Surgery); EMERGENCY PHYSICIAN Emergency Medicine; FAMILY PHYSICIAN Internal Medicine
DX: J90 Pleural effusion, not elsewhere classified (principal); D62 Acute posthemorrhagic anemia; E78.00 Pure hypercholesterolemia, unspecified; G25.81 Restless legs syndrome; I08.1 Rheumatic disorders of both mitral and tricuspid valves; I10 Essential (primary) hypertension; I25.10 Atherosclerotic heart disease of native coronary artery without angina pectoris; I82.453 Acute embolism and thrombosis of peroneal vein, bilateral; I82.463 Acute embolism and thrombosis of calf muscular vein, bilateral; K21.9 Gastro-esophageal reflux disease without esophagitis; J98.11 Atelectasis; N99.0 Postprocedural (acute) (chronic) kidney failure; N17.9 Acute kidney failure, unspecified; K44.9 Diaphragmatic hernia without obstruction or gangrene; Z11.52 Encounter for screening for COVID-19; Z79.899 Other long term (current) drug therapy; Z79.82 Long term (current) use of aspirin; Z79.02 Long term (current) use of antithrombotics/antiplatelets
CPT/HCPCS: 32555; 71045; 71046; 71275; 80048; 80053; 83735; 83880; 84484; 85025; 85027; 85730; 86850; 86900; 86901; 87502; 87811; 93005; 93306; 93971; 96374; 99285; G0378; Q9967

== ENCOUNTER → 2025-04-28 10:41 | Outpatient (REF) | payer OTHER, SELFPAY ==
[2025-04-28 11:10] LABS: Hematocrit 32.5 % (39.0-52.0); Hemoglobin 10.1 g/dL (13.0-18.0); Mean Corp Hgb Conc. 31.1 g/dL (33.0-37.0); Mean Corpuscular Volume 87.6 fL (80.0-94.0); Nucleated Red Blood Cells % 0 % (-); Platelet Count 409 10^3/uL (130-400); Red Cell Dist. Width 13.6 % (11.5-14.5)
[2025-04-28 11:54] LABS: ALT (SGPT) 48 U/L (0-50); AST (SGOT) 29 U/L (17-59); Albumin 3.9 g/dl (3.5-5.0); Alkaline Phosphatase 81 U/L (38-126); Blood Urea Nitrogen 15 mg/dl (9-20); Calcium 9.3 mg/dl (8.4-10.2); Carbon Dioxide 30 mmol/L (22-30); Chloride 104 mmol/L (98-107); Glucose 93 mg/dl (70-99); Potassium 4.5 mmol/L (3.5-5.1); Sodium 139 mmol/L (135-145); Total Protein 7.0 g/dl (6.3-8.2); eGFR > 60.00
== END ==
LOC: REG 10:41
PROVIDERS: ATTENDING PHYSICIAN Nurse Practitioner
DX: J90 Pleural effusion, not elsewhere classified (principal); Z95.1 Presence of aortocoronary bypass graft
CPT/HCPCS: 36415; 71046; 80053; 85025